=== PATIENT | male | born 1940 | race Caucasian/White ===

== ENCOUNTER 2016-12-05 13:12 | Observation (INO) | payer MEDICARE, BC ==
[2016-12-05 13:52] LABS: ABSOLUTE BASOPHILS # (AUTO) 0.1 10^3/uL (0.0-0.2); ABSOLUTE EOSINOPHILS # (AUTO) 0.4 10^3/uL (0.0-0.6); ABSOLUTE LYMPHOCYTES (AUTO) 1.7 10^3/uL (0.5-4.7); ABSOLUTE MONOCYTES (AUTO) 0.7 10^3/uL (0.1-1.4); ABSOLUTE NEUT (AUTO) 5.7 10^3/uL (1.7-8.2); BASOPHILS % (AUTO) 0.6 % (0-2); EOSINOPHILS % (AUTO) 4.2 % (0-6); HEMATOCRIT 34.6 % (37.9-51.0); HEMOGLOBIN 11.9 g/dL (13.5-17.0); HGB HCT DIFFERENCE 1.1; MEAN CORPUSCULAR HEMOGLOBIN 29.8 pg (27.0-33.4); MEAN CORPUSCULAR HGB CONC 34.4 g/dL (32.0-36.0); MEAN CORPUSCULAR VOLUME 87 fl (80-97); MONOCYTES % (AUTO) 8.6 % (3-13); RED CELL DISTRIBUTION WIDTH 13.3 % (11.5-14.0); SEGMENTED NEUTROPHILS % (AUTO) 66.6 % (42-78); WHITE BLOOD COUNT 8.5 10^3/uL (4.0-10.5)
[2016-12-05 14:15] LABS: ALANINE AMINOTRANSFERASE 29 U/L (21-72); ALBUMIN 3.8 g/dL (3.5-5.0); ALKALINE PHOSPHATASE 93 U/L (38-126); ANION GAP 16 (5-19); ASPARTATE AMINO TRANSFERASE 25 U/L (17-59); BILIRUBIN,TOTAL 0.5 mg/dL (0.2-1.3); BLOOD UREA NITROGEN 38 mg/dL (7-20); CALCIUM 9.7 mg/dL (8.4-10.2); CARBON DIOXIDE 26 mmol/L (22-30); CHLORIDE 101 mmol/L (98-107); CREATINE KINASE 78 U/L (55-170); CREATININE RESULT 1.64 mg/dL (0.52-1.25); GLUCOSE 128 mg/dL (75-110); POTASSIUM 4.5 mmol/L (3.6-5.0); SODIUM 142.8 mmol/L (137-145); TOTAL PROTEIN 6.5 g/dL (6.3-8.2)
--- NOTE | 2016-12-05 14:17 | ER Document Report ---
ED Cardiac <JAYDONZAFAR HudsonTHANH - Last Filed: 12/05/16 16:29> - General Mode of Arrival: Medic Information source: Patient TRAVEL OUTSIDE OF THE [place] IN LAST 30 DAYS: No - HPI Patient complains to provider of: Chest pain Associated symptoms: Other - See above <TONIE BRANCH - Last Filed: 12/09/16 14:15> - General Chief Complaint: Chest Pain Stated Complaint: CHEST PAIN Notes: This 76-year-old male patient comes emergency room for several problems. He is an insulin-dependent diabetic who states he frequently has low blood sugar due to accidentally taking too much insulin. He feels that is what happened this morning. He was at [employer] and noted that his blood sugar went down to 40 so he took oral glucose. This was about 12:30 PM. About the same time he noticed some left facial drooping, he noted his speech seems slurred and he was having trouble "forming the words ", and he also developed left-sided chest discomfort and tightness. He took 325 mg aspirin one sublingual nitroglycerin. Nitroglycerin seemed to ease the pain somewhat but not completely. Later the pain returned and he reports over the last hour since arriving here the pain would come and go. He states his left face still feels a little funny, but he is able to form his words properly at this time. He stated he had weakness in both upper extremities when this occurred. There was also an aching in both upper extremities. His history significant for coronary artery disease with 13 heart attacks, a three-vessel bypass in 2006. In 2010 he was sent from here to [facility] for catheterization following an admission for chest pain. He reports at that time no interventions were done. During the discussion about his symptoms, he also reports that he has trouble swallowing and then gags to demonstrate. He also states that it feels like his mouth and throat are quite dry. He does appear to be considerably anxious. He has no demonstrable motor weakness at this time on exam. His speech is quite clear although he does repeat himself and seems almost stutter some. He also reported that he had fallen 2 times in the past 2 weeks and was going to physical therapy. He is not a TPA candidate due to his lack of symptoms at this time and his reporting that his symptoms had improved quite a bit. (THANH INTERIANO) Patient is a 76 year old male, with a past medical history of diabetes and heart attacks, who presents to the emergency department complaining of chest pain onset at 1230 today. Patient reports that his day began when he took too much insulin and his blood sugar dropped which happens to him pretty frequently. After he raised his blood sugar back to normal, patient reports the chest pain began and described it as pain and tightness lasting a long time located around his sternum and accompanied with bilateral arm pain. Patient reports he took Nitro when the pain began which eased the pain but didn't relieve it entirely. Patient states the chest pain has been waxing and waning ever since onset. En route patient reports he experienced slurred speech and left sided facial weakness as well as difficulty swallowing. Patient complains that the facial weakness and difficulty swallowing are still present as well as some of the chest pain. Patient denies being on any blood thinners and takes an Asa daily. Receptionist: Dr. Vera (TONIE BRANCH) - Related Data Allergies/Adverse Reactions: No Known Allergies Allergy (Unverified 03/02/11 15:05) Home Medications: Current Home Medications Aspirin [Ecotrin] 81 mg PO DAILY 12/06/16 [History] Atorvastatin Calcium [Lipitor 40 mg Tablet] 40 mg PO QHS 12/06/16 [History] Calcium Carbonate/Vitamin D3 [Calcium 500-Vit D3 400 Tablet] 1 tab PO DAILY [History] Carvedilol [Coreg 12.5 mg Tablet] 6.25 mg PO DAILY 12/06/16 [History] Doxycycline Hyclate [Vibramycin 100 mg Tablet] 100 mg PO BID 12/06/16 [History] Insulin Aspart [Novolog Insulin (Aspart) 100 unit/mL] 0 units SQ ASDIR PRN 12/06 [History] Insulin Glargine,Hum.rec.anlog [Lantus] 0 units SQ ASDIR PRN 12/06/16 [History] Nifedipine [Nifedipine ER] 30 mg PO DAILY 12/06/16 [History] Sitagliptin Phosphate [Januvia 50 mg Tablet] 25 mg PO DAILY 12/06/16 [History] Tolterodine Tartrate [Detrol LA] 4 mg PO DAILY 12/06/16 [History] Past Medical History - General Information source: Patient - Social History Smoking Status: Never Smoker Family History: Reviewed & Not Pertinent - Past Medical History Cardiac Medical History: Reports: Hx Heart Attack - [place] x13, Hx Hypertension Pulmonary Medical History: Reports: Hx Pneumonia - hx of Endocrine Medical History: Reports: Hx Diabetes Mellitus Type 2 Malignancy Medical History: Reports Hx Prostate Cancer Musculoskeltal Medical History: Reports Hx Arthritis - hands Past Surgical History: Reports: Hx Cardiac Surgery - triple bypass - Immunizations Hx Diphtheria, Pertussis, Tetanus Vaccination: Yes - unsure of date <TONIE BRANCH - Last Filed: 12/09/16 14:15> Review of Systems - Review of Systems Constitutional: No symptoms reported EENT: See HPI, Difficulty swallowing Cardiovascular: See HPI, Chest pain Respiratory: No symptoms reported Gastrointestinal: No symptoms reported Genitourinary: No symptoms reported Male Genitourinary: No symptoms reported Musculoskeletal: See HPI, Other - arm pain Skin: No symptoms reported Hematologic/Lymphatic: No symptoms reported Neurological/Psychological: See HPI, Weakness - left sided facial, Speech impairment - slurred -: Yes All other systems reviewed and negative <TONIE BRANCH - Last Filed: 12/09/16 14:15> Physical Exam - Vital signs Interpretation: Normal - General General appearance: Appears well, Alert - HEENT Head: Normocephalic, Atraumatic - Respiratory Respiratory status: No respiratory distress Chest status: Nontender Breath sounds: Normal Chest palpation: Normal - Cardiovascular Rhythm: Regular Heart sounds: Normal auscultation Murmur: No - Abdominal Inspection: Normal Distension: No distension Bowel sounds: Normal Tenderness: Nontender Organomegaly: No organomegaly - Extremities General upper extremity: Normal inspection, Normal strength General lower extremity: Normal inspection, Normal strength - Neurological Neuro grossly intact: Yes Cognition: Normal Orientation: AAOx4 Antonia Coma Scale Eye Opening: Spontaneous [place] Coma Scale Verbal: Oriented Antonia Coma Scale Motor: Obeys Commands Antonia Coma Scale Total: 15 Speech: Normal Cranial nerves: Normal - May be some slight left sided muscle weakness but patient is still able to use them Motor strength normal: LUE, RUE, LLE, RLE Additional motor exam normals: 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 Chest x-ray is unremarkable. - EKG Interpretation by Ga EKG shows normal: Sinus rhythm, [place], Intervals, ST-T Waves. abnormal: QRS Complexes - Possible old septal NE Rate: Normal - 88 Rhythm: NSR When compared to previous EKG there are: No significant change - Consults Dr. Hauser Time consulted: 16:20 Consulted provider: will come to ER <THANH INTERIANO - Last Filed: 12/05/16 16:29> - Laboratory Result Diagrams: 12/06/16 05:42 12/06/16 05:42 <TONIE BRANCH - Last Filed: 12/09/16 14:15> - Vital Signs Vital signs: Temp Pulse Resp BP Pulse Ox 98.5 F 80 16 130/58 H 98 12/06/16 14:12 12/06/16 14:12 12/06/16 14:12 12/06/16 14:12 12/06/16 14:12 - Laboratory Laboratory results interpreted by al: 12/05/16 12/05/16 12/05/16 13:19 13:30 13:30 RBC 4.00 L Hgb 11.9 L Hct 34.6 L BUN 38 H Creatinine 1.64 H Est GFR ( Amer) 50 L Est GFR (Non-Af Amer) 41 L Glucose 128 H POC Glucose 138 H 12/05/16 16:16 RBC Hgb Hct BUN Creatinine Est GFR ( Amer) Est GFR (Non-Af Amer) Glucose POC Glucose 143 H Discharge - Discharge Admitting Provider: Hospitalist Unit Admitted: IMCU <THANH INTERIANO - Last Filed: 12/05/16 16:29> <TONIE BRANCH - Last Filed: 12/09/16 14:15> - Discharge Clinical Impression: Hypoglycemia due to insulin Chest pain Qualifiers: Chest pain type: unspecified Qualified Code(s): R07.9 - Chest pain, unspecified TIA (transient ischemic attack) Qualifiers: Transient cerebral ischemia type: unspecified Qualified Code(s): G45.9 - Transient cerebral ischemic attack, unspecified Condition: Good Disposition: HOME, SELF-CARE Scribe Attestation: 12/05/16 16:29 I personally performed the services described in the documentation, reviewed and edited the documentation which was dictated to the scribe in my presence, and it accurately records my words and actions. (THANH INTERIANO) Scribe Documentation - Scribe Written by Jane:: jane Whitney, 12/05/16, [id number] acting as scribe for :: Jaydon <TONIE BRANCH - Last Filed: 12/09/16 14:15>
[2016-12-05 14:33] LABS: CREATINE KINASE MB 1.33 ng/mL (<4.55)
[2016-12-05 14:34] LABS: TROPONIN I < 0.012 ng/mL
[2016-12-05 14:36] LABS: PROTHROMBIN TIME 12.6 SEC (11.4-15.4)
--- NOTE | 2016-12-05 16:05 | EKG REPORT ---
SEVERITY:- ABNORMAL ECG - SINUS RHYTHM CONSIDER ANTEROSEPTAL INFARCT : Confirmed by: Renata Juan MD 05-Dec-2016 16:03:50
[2016-12-05] MEDS ORDERED: ONDANSETRON 4 MG TAB.RAPDIS PO PRN (16:45)
[2016-12-05] MEDS ORDERED: ACETAMINOPHEN 325 MG TABLET PO PRN (16:45)
[2016-12-05] MEDS ORDERED: ONDANSETRON HCL INJ/PF 4 MG/2 ML SDV IV PRN (16:45)
[2016-12-05] MEDS ORDERED: DEXTROSE 40% GEL 15 GM TUBE PO PRN ×2 (16:54)
[2016-12-05] MEDS ORDERED: GLUCAGON,HUMAN RECOMB 1 MG INJ IM PRN (16:54)
[2016-12-05] MEDS ORDERED: DEXTROSE 50%-WATER 25 GM/50 ML DISP.SYRIN IV PRN ×2 (16:54)
[2016-12-05] MEDS ORDERED: BUTALB/ACETAMINOPHEN/CAFFEINE 1 TAB EACH PO PRN (16:57)
--- NOTE | 2016-12-05 17:08 | PDOC H&P ---
History of Present Illness Admission Date/PCP: XENIA STYLES MD Patient complains of: Expressive aphasia as well as chest pain with History of Present Illness: SRIDEVI GREENWOOD is a 76 year old male who was at congregational earlier today and began to have problems speaking. Patient was able to check his blood sugar and it was 61. The patient took some glucose tablets with improvement but continues to have problems speaking. The patient also developed some left-sided chest pain describes as sharp sticking pain and did not radiate. There was also a questionable facial droop but that has resolved by his report. The patient reports that he felt generalized weak but did not have any focal weakness. His blood sugars have been normal since the initial blood sugar 61. He reports that his chest pain is sharp and does not radiate. He denies any palpitations or tachycardia. 1 week ago he had a syncopal episode for which he has seen his farm products shipper Dr. Vera and has had a carotid Doppler done which was normal his report. He also scheduled to have an echocardiogram done on Wednesday. Patient reports that his blood sugars for the most part have been under good control. He denies have any fevers or chills. He denies any visual loss. He denies any weakness in his arms or legs and denies any sensory changes. Past Medical History Cardiac Medical History: Reports: Myocardial Infarction - [place] x13, Hypertension Denies: Coronary Artery Disease Pulmonary Medical History: Reports: Pneumonia - hx of Denies: Asthma, Bronchitis, Chronic Obstructive Pulmonary Disease (COPD) EENT Medical History: Reports: Cataracts Neurological Medical History: Denies: Seizures Endocrine Medical History: Reports: Diabetes Mellitus Type 2 Malignancy Medical History: Reports: Other - Prostate cancer with history of radiation seed implantation GI Medical History: Reports: None Musculoskeltal Medical History: Reports: Arthritis - hands Skin Medical History: Reports: None Hematology: Denies: Anemia Past Surgical History Past Surgical History: Reports: Coronary Artery Bypass Graft Denies: Pacemaker Social History Information Source: Patient Lives with: Family Smoking Status: Never Smoker Frequency of Alcohol Use: None Hx Recreational Drug Use: No Drugs: None Hx Prescription Drug Abuse: No - Advance Directive Resuscitation Status: Full Code Surrogate healthcare decision maker:: His son is his decision maker Family History Family History: Father at 61 from coronary artery disease and GI problems. Mother at age 89 from coronary artery disease. Parental Family History Reviewed: Yes Children Family History Reviewed: No Sibling(s) Family History Reviewed.: No Medication/Allergy Allergies/Adverse Reactions: No Known Allergies Allergy (Unverified 03/02/11 15:05) Review of Systems Constitutional: PRESENT: weakness - Unless weakness. ABSENT: chills, fever(s), headache(s), weight gain, weight loss Eyes: ABSENT: visual disturbances Ears: ABSENT: hearing changes Cardiovascular: PRESENT: as per HPI Respiratory: ABSENT: cough, dyspnea, hemoptysis, sputum Gastrointestinal: ABSENT: abdominal pain, constipation, diarrhea, hematemesis, hematochezia, nausea, vomiting Musculoskeletal: ABSENT: joint swelling Integumentary: ABSENT: rash, wounds Neurological: PRESENT: as per HPI Psychiatric: ABSENT: anxiety, depression Endocrine: ABSENT: cold intolerance, heat intolerance, polydipsia, polyuria Physical Exam Vital Signs: Temp Pulse Resp BP Pulse Ox 97.9 F 85 16 130/58 H 98 12/05/16 13:40 12/05/16 13:40 12/05/16 13:41 12/05/16 13:40 12/05/16 13:41 Intake & Output 12/04/16 12/05/16 12/06/16 06:59 06:59 06:59 Weight 81.193 kg General appearance: PRESENT: no acute distress Head exam: PRESENT: atraumatic, normocephalic Eye exam: PRESENT: conjunctiva pink, EOMI, PERRLA. ABSENT: scleral icterus Ear exam: PRESENT: normal external ear exam Mouth exam: PRESENT: moist, tongue midline Neck exam: ABSENT: carotid bruit, JVD, lymphadenopathy, thyromegaly Respiratory exam: PRESENT: clear to auscultation iván. ABSENT: rales, rhonchi, wheezes Cardiovascular exam: PRESENT: RRR. ABSENT: diastolic murmur, rubs, systolic murmur Pulses: PRESENT: normal dorsalis pedis pul Vascular exam: PRESENT: normal capillary refill GI/Abdominal exam: PRESENT: normal bowel sounds, soft. ABSENT: distended, guarding, mass, organolmegaly, rebound, tenderness Rectal exam: PRESENT: deferred Extremities exam: ABSENT: calf tenderness, clubbing, pedal edema Neurological exam: PRESENT: alert, awake, oriented to person, oriented to place , oriented to time, oriented to situation, CN II-XII grossly intact. ABSENT: motor sensory deficit Psychiatric exam: PRESENT: anxious Skin exam: PRESENT: dry, intact, warm. ABSENT: cyanosis, rash Results Laboratory Results: 12/05/16 13:30 12/05/16 13:30 12/05/16 12/05/16 13:30 13:30 WBC 8.5 RBC 4.00 L Hgb 11.9 L Hct 34.6 L MCV 87 MCH 29.8 MCHC 34.4 RDW 13.3 Plt Count 167 Seg Neutrophils % 66.6 Lymphocytes % 20.0 Monocytes % 8.6 Eosinophils % 4.2 Basophils % 0.6 Absolute Neutrophils 5.7 Absolute Lymphocytes 1.7 Absolute Monocytes 0.7 Absolute Eosinophils 0.4 Absolute Basophils 0.1 Sodium 142.8 Potassium 4.5 Chloride 101 Carbon Dioxide 26 Anion Gap 16 BUN 38 H Creatinine 1.64 H Est GFR ( Amer) 50 L Est GFR (Non-Af Amer) 41 L Glucose 128 H Calcium 9.7 Total Bilirubin 0.5 AST 25 ALT 29 Alkaline Phosphatase 93 Total Protein 6.5 Albumin 3.8 12/05/16 12/05/16 13:30 13:30 Creatine Kinase 78 CK-MB (CK-2) 1.33 Troponin I < 0.012 Impressions: Chest X-Ray 12/05/16 13:40 IMPRESSION: NO ACUTE RADIOGRAPHIC FINDING IN THE CHEST. Head CT 12/05/16 14:19 IMPRESSION: No acute abnormality in the brain. Assessment & Plan - Diagnosis (1) TIA (transient ischemic attack) Qualifiers: Transient cerebral ischemia type: unspecified Qualified Code(s): G45.9 - Transient cerebral ischemic attack, unspecified Is this a current diagnosis for this admission?: YesPlan: The patient had dysarthria along with some expressive aphasia as well as a questionable facial droop. However this was associated with a blood glucose sugar 61. It's unclear as to whether this is all related to hyperglycemia or whether he actually had a TIA. We will admit and do serial neurological exams. We'll also check an MRI. He had carotid Dopplers done 1 week ago his farm products shipper which is normal his report. He is scheduled to get an echocardiogram done by his farm products shipper on Wednesday. He request that this not be done here and that we allow his farm products shipper to the echocardiogram. We will treat with aspirin. He is already on a statin. (2) Chest pain Qualifiers: Chest pain type: unspecified Qualified Code(s): R07.9 - Chest pain, unspecified (3) Diabetes mellitus Is this a current diagnosis for this admission?: YesPlan: We'll continue with his usual Lantus dose of 23 units twice a day and cover also with sliding scale insulin. Will hold his oral Januvia for now. (4) Coronary artery disease Is this a current diagnosis for this admission?: YesPlan: Patient had an episode of chest pain. We will check serial cardiaccertain that he is not had an acute cardiac event. Would defer a stress test to his farm products shipper whom he has appointment with in 2 days. (5) Prostate cancer Is this a current diagnosis for this admission?: YesPlan: Asymptomatic (6) Hyperlipidemia Is this a current diagnosis for this admission?: YesPlan: Continue with Lipitor. - Time Time Spent: 50 to 70 Minutes - Plan Summary Plan Summary: Patient is to be admitted as an observation patient
[2016-12-05 17:58] LABS: CREATINE KINASE MB 1.18 ng/mL (<4.55)
[2016-12-05 17:59] LABS: TROPONIN I < 0.012 ng/mL
[2016-12-05] MEDS ORDERED: ATORVASTATIN CALCIUM 40 MG TABLET PO SCH (22:00)
[2016-12-05] MEDS: FAMOTIDINE 20 MG TABLET PO SCH (22:24)
[2016-12-05] MEDS ORDERED: INSULIN GLARGINE,HUM.REC.ANLOG 300 UNIT/3 ML INSULN.PEN SUBCUT ONE (22:37)
[2016-12-05 23:48] LABS: CREATINE KINASE MB 0.97 ng/mL (<4.55)
[2016-12-05 23:49] LABS: TROPONIN I < 0.012 ng/mL
[2016-12-06] MEDS: INSULIN GLARGINE,HUM.REC.ANLOG 300 UNIT/3 ML INSULN.PEN SUBCUT SCH ×2 (00:26→09:19)
[2016-12-06 06:03] LABS: HEMATOCRIT 32.5 % (37.9-51.0); HEMOGLOBIN 11.1 g/dL (13.5-17.0); HGB HCT DIFFERENCE 0.8; MEAN CORPUSCULAR HEMOGLOBIN 29.9 pg (27.0-33.4); MEAN CORPUSCULAR HGB CONC 34.3 g/dL (32.0-36.0); MEAN CORPUSCULAR VOLUME 87 fl (80-97); RED BLOOD COUNT 3.73 10^6/uL (4.35-5.55); RED CELL DISTRIBUTION WIDTH 13.1 % (11.5-14.0); WHITE BLOOD COUNT 6.6 10^3/uL (4.0-10.5)
[2016-12-06 06:22] LABS: ANION GAP 12 (5-19); BLOOD UREA NITROGEN 35 mg/dL (7-20); CALCIUM 8.8 mg/dL (8.4-10.2); CARBON DIOXIDE 22 mmol/L (22-30); CHLORIDE 105 mmol/L (98-107); CREATINE KINASE 49 U/L (55-170); CREATININE RESULT 1.21 mg/dL (0.52-1.25); GLUCOSE 180 mg/dL (75-110); POTASSIUM 4.1 mmol/L (3.6-5.0); SODIUM 138.6 mmol/L (137-145)
[2016-12-06 06:33] LABS: CREATINE KINASE MB 0.87 ng/mL (<4.55)
[2016-12-06 06:38] LABS: TROPONIN I < 0.012 ng/mL
[2016-12-06] MEDS: INSULIN LISPRO 100 UNIT/ML 3 ML VIAL SUBCUT PRN ×2 (08:15→12:25)
[2016-12-06] MEDS: FAMOTIDINE 20 MG TABLET PO SCH (09:19)
[2016-12-06] MEDS ORDERED: ASPIRIN 325 MG TABLET, ENT COATED PO SCH (10:00)
--- NOTE | 2016-12-06 11:38 | PDOC DISCHARGE SUMMARY ---
General - Admit/Disc Date/PCP Admission Date/Primary Care Provider: 12/05/16 16:45 XENIA STYLES MD Discharge Date: 12/06/16 - Discharge Diagnosis (1) TIA (transient ischemic attack) Is this a current diagnosis for this admission?: YesSummary: Is not clear whether this was truly a TIA or was all related to hypoglycemia. His MRI was unremarkable for any acute event. The patient had carotid Dopplers done last week at his registered occupational therapist. He is scheduled to get an echocardiogram at his registered occupational therapist's office tomorrow. He will continue with aspirin. (2) Chest pain Is this a current diagnosis for this admission?: YesSummary: The patient had negative cardiac enzymes. He will follow-up with his registered occupational therapist tomorrow. (3) Diabetes mellitus Is this a current diagnosis for this admission?: Yes (4) Coronary artery disease Is this a current diagnosis for this admission?: Yes (5) Prostate cancer Is this a current diagnosis for this admission?: Yes (6) Hyperlipidemia Is this a current diagnosis for this admission?: Yes - Additional Information Resuscitation Status: Full Code History of Present Illness History of Present Illness: SRIDEVI GREENWOOD is a 76 year old male who was at [facility] earlier today and began to have problems speaking. Patient was able to check his blood sugar and it was 61. The patient took some glucose tablets with improvement but continues to have problems speaking. The patient also developed some left-sided chest pain describes as sharp sticking pain and did not radiate. There was also a questionable facial droop but that has resolved by his report. The patient reports that he felt generalized weak but did not have any focal weakness. His blood sugars have been normal since the initial blood sugar 61. He reports that his chest pain is sharp and does not radiate. He denies any palpitations or tachycardia. 1 week ago he had a syncopal episode for which he has seen his registered occupational therapist Dr. Vera and has had a carotid Doppler done which was normal his report. He also scheduled to have an echocardiogram done on Wednesday. Patient reports that his blood sugars for the most part have been under good control. He denies have any fevers or chills. He denies any visual loss. He denies any weakness in his arms or legs and denies any sensory changes. Hospital Course Hospital Course: 76 year old gentleman with diabetes and coronary artery disease who presented with complaints of dysarthria. His sugar was 61 when he first started having symptoms. He was admitted as a TIA and had an unremarkable workup. He is to continue with aspirin. His echocardiogram was not done as he will get it done in his registered occupational therapist tomorrow at his scheduled appointment. He had carotid Dopplers done 1 week ago that were normal by his report. He also presented with chest pain but had negative cardiac enzyme has been chest pain-free. He will see his registered occupational therapist tomorrow. Physical Exam Vital Signs: Temp Pulse Resp BP Pulse Ox 98.1 F 78 16 131/63 H 99 12/06/16 07:50 12/06/16 08:27 12/06/16 08:00 12/06/16 08:00 12/06/16 08:00 Intake & Output 12/05/16 12/06/16 12/07/16 06:59 06:59 06:59 Output Total 400 Balance -400 Weight 81.18 kg General appearance: PRESENT: no acute distress Eye exam: PRESENT: conjunctiva pink. ABSENT: scleral icterus Mouth exam: PRESENT: moist, tongue midline Neck exam: ABSENT: JVD Respiratory exam: PRESENT: clear to auscultation iván. ABSENT: rales, rhonchi, wheezes Cardiovascular exam: PRESENT: RRR. ABSENT: diastolic murmur, rubs, systolic murmur GI/Abdominal exam: PRESENT: normal bowel sounds, soft. ABSENT: distended, guarding, mass, organolmegaly, rebound, tenderness Extremities exam: ABSENT: calf tenderness, clubbing, pedal edema Neurological exam: PRESENT: alert, awake, oriented to person, oriented to place , oriented to time, oriented to situation, CN II-XII grossly intact. ABSENT: motor sensory deficit Psychiatric exam: PRESENT: appropriate affect Skin exam: PRESENT: dry, intact, warm. ABSENT: cyanosis, rash Results Laboratory Results: 12/06/16 05:42 12/06/16 05:42 12/06/16 12/06/16 05:42 05:42 WBC 6.6 RBC 3.73 L Hgb 11.1 L Hct 32.5 L MCV 87 MCH 29.9 MCHC 34.3 RDW 13.1 Plt Count 151 Sodium 138.6 Potassium 4.1 Chloride 105 Carbon Dioxide 22 Anion Gap 12 BUN 35 H Creatinine 1.21 Est GFR ( Amer) > 60 Est GFR (Non-Af Amer) 58 L Glucose 180 H Calcium 8.8 12/05/16 12/05/16 12/05/16 17:15 17:15 23:00 Creatine Kinase 71 58 CK-MB (CK-2) 1.18 Troponin I < 0.012 12/05/16 12/06/16 12/06/16 23:00 05:42 05:42 Creatine Kinase 49 L CK-MB (CK-2) 0.97 0.87 Troponin I < 0.012 < 0.012 Impressions: Head MRI 12/05/16 00:00 IMPRESSION: MINIMAL MICROVASCULAR ISCHEMIC CHANGE. Mild cortical atrophy. OTHERWISE NORMAL STUDY. Chest X-Ray 12/05/16 13:40 IMPRESSION: NO ACUTE RADIOGRAPHIC FINDING IN THE CHEST. Head CT 12/05/16 14:19 IMPRESSION: No acute abnormality in the brain. Qualifiers PATEINT BEING DISCHARGED WITH ANY OF THE FOLLOWING DIAGNOSIS?: No Plan Discharge Plan: Patient discharged home in stable condition. He will follow-up with his registered occupational therapist tomorrow for evaluation of his chest pain as well as echocardiogram. Time Spent: Less than 30 Minutes
[2016-12-06 14:15] VITALS: BP 130/58
== END 2016-12-06 14:35 | disposition home or self-care (01) ==
LOC: ER 13:12 → EH 16:45 → 3W 12-06 02:51
PROVIDERS: ADMIT Internal Medicine; ATTEND Internal Medicine
DX: G45.9 Transient cerebral ischemic attack, unspecified (principal); R07.9 Chest pain, unspecified; E11.9 Type 2 diabetes mellitus without complications; I25.10 Atherosclerotic heart disease of native coronary artery without angina pectoris; C61 Malignant neoplasm of prostate; E78.5 Hyperlipidemia, unspecified; I25.2 Old myocardial infarction; I10 Essential (primary) hypertension; Z95.1 Presence of aortocoronary bypass graft; Z79.4 Long term (current) use of insulin
CPT/HCPCS: 93005; 99285; 36415 ×2; 82553 ×2; 82962 ×2; 82550 ×2; 85025; 85027; 85610; 80048; 80053; 84484 ×2; 70551; 71010; 70450; 93010; 97162; G0378 ×3; A9270 ×5; J3490 ×2; J1815

== ENCOUNTER → 2017-03-04 | Outpatient (CLI) | payer MEDICARE, BC ==
--- NOTE | 2017-03-04 09:25 | WOMENS IMAGING REPORT ---
EXAM DESCRIPTION: BONE DENSITY HIP/SPINE COMPLETED DATE/TIME: 03/04/2017 8:59 am REASON FOR STUDY: BONE DENSITY; M81.0 M81.0 AGE-RELATED OSTEOPOROSIS W/O CURRENT PATHOLOGICAL FRAC COMPARISON: Bone scan 04/09/2014, 10/17/2012 Prior bone density assessment 11/03/2012, 12/03/2014 TECHNIQUE: Dual-Energy X-ray Absorptiometry (DEXA) of the AP Spine and Hip. LIMITATIONS: None. FINDINGS: LUMBAR SPINE: The bone mineral density (BMD) measured from L1-L4 in the AP projection correlates with a T-score of +2.2, which is normal as defined by the World Health Organization. Please note that this does includ e vertebral body endplate sclerosis and posterior element bony spurring. This is not statistically s ignificantly different from prior studies. HIP: The bone mineral density (BMD) measured in the left total hip correlates with a T-score of +0.6, whic h is normal as defined by the World Health Organization. This is not statistically significantly dif ferent from 2014 and represents a 2.5% decline in bone density compared to 2012 IMPRESSION: 1. LUMBAR SPINE: Normal 2. HIP: Normal COMMENT: The World Health Organization defines low BMD as follows: T-score: Normal: Greater than -1.0 Osteopenia: Between -1.0 and -2.5 Osteoporosis: Less than -2.5 without fractures Established osteoporosis: Less than -2.5 with fractures In general, you may wish to consider: Diagnosis Treatment Follow-up DEXA Normal BMD Prevention 2-3 years Osteopenia Prevention/Therapy 1-2 years Osteoporosis Therapy Yearly TECHNICAL DOCUMENTATION: JOB ID: [id number] All Rights Reserved
== END ==
LOC: WI 08:06
PROVIDERS: ATTEND Urology
DX: M81.0 Age-related osteoporosis without current pathological fracture (principal)
CPT/HCPCS: 77080

== ENCOUNTER 2017-03-13 17:10 | Emergency (ER) | payer MEDICARE, BC ==
[2017-03-13] MEDS ORDERED: NORMAL SALINE 500 ML IV ONE (17:24)
--- NOTE | 2017-03-13 17:25 | ER Document Report ---
ED Medical Screen (RME) - General Chief Complaint: Abdominal Pain Stated Complaint: SIDE PAIN Time Seen by Provider: 03/13/17 17:24 TRAVEL OUTSIDE OF THE [place] IN LAST 30 DAYS: No - HPI Notes: 03/13/17 17:25 Acute onset left lower quadrant pain with diarrhea - Related Data Allergies/Adverse Reactions: No Known Allergies Allergy (Unverified 03/02/11 15:05) Past Medical History - Past Medical History Cardiac Medical History: Reports: Hx Heart Attack - [place] x13, Hx Hypertension Denies: Hx Coronary Artery Disease Pulmonary Medical History: Reports: Hx Pneumonia - hx of Denies: Hx Asthma, Hx Bronchitis, Hx COPD Neurological Medical History: Denies: Hx Cerebrovascular Accident, Hx Seizures Endocrine Medical History: Reports: Hx Diabetes Mellitus Type 2 Renal/ Medical History: Denies: Hx Peritoneal Dialysis Malignancy Medical History: Reports Hx Prostate Cancer Musculoskeltal Medical History: Reports Hx Arthritis - hands Past Surgical History: Reports: Hx Cardiac Surgery - triple bypass, Hx Coronary Artery Bypass Graft. Denies: Hx Pacemaker - Immunizations Hx Diphtheria, Pertussis, Tetanus Vaccination: Yes - unsure of date Review of Systems - Review of Systems Constitutional: No symptoms reported EENT: No symptoms reported Cardiovascular: No symptoms reported Respiratory: No symptoms reported Gastrointestinal: Abdominal pain Genitourinary: No symptoms reported Male Genitourinary: No symptoms reported Musculoskeletal: No symptoms reported Skin: No symptoms reported Hematologic/Lymphatic: No symptoms reported Neurological/Psychological: No symptoms reported Physical Exam - Vital signs Vitals: Temp Pulse Resp BP Pulse Ox 99.7 F 109 H 18 129/71 H 95 03/13/17 17:14 03/13/17 17:14 03/13/17 17:14 03/13/17 17:14 03/13/17 17:14 Interpretation: Normal - General General appearance: Appears well, Alert - HEENT Head: Normocephalic, Atraumatic Eyes: Normal Pupils: PERRL - Respiratory Respiratory status: No respiratory distress Chest status: Nontender Breath sounds: Normal Chest palpation: Normal - Cardiovascular Rhythm: Regular Heart sounds: Normal auscultation Murmur: No - Abdominal Inspection: Normal Distension: No distension Bowel sounds: Normal Tenderness: Tender - Left lower quadrant Organomegaly: No organomegaly - Back Back: Normal, Nontender - Extremities General upper extremity: Normal inspection, Nontender, Normal color, Normal ROM , Normal temperature General lower extremity: Normal inspection, Nontender, Normal color, Normal ROM , Normal temperature, Normal weight bearing. No: Heladio's sign - Neurological Neuro grossly intact: Yes Cognition: Normal Orientation: AAOx4 Antonia Coma Scale Eye Opening: Spontaneous [place] Coma Scale Verbal: Oriented [place] Coma Scale Motor: Obeys Commands Antonia Coma Scale Total: 15 Speech: Normal Motor strength normal: LUE, RUE, LLE, RLE Sensory: Normal - Psychological Associated symptoms: Normal affect, Normal mood - Skin Skin Temperature: Warm Skin Moisture: Dry Skin Color: Normal Course - Re-evaluation Re-evalutation: 03/13/17 17:25 - Vital Signs Vital signs: Temp Pulse Resp BP Pulse Ox 99.7 F 109 H 18 129/71 H 95 03/13/17 17:14 03/13/17 17:14 03/13/17 17:14 03/13/17 17:14 03/13/17 17:14
[2017-03-13 18:42] LABS: ABSOLUTE EOSINOPHILS # (AUTO) 0.1 10^3/uL (0.0-0.6); ABSOLUTE LYMPHOCYTES (AUTO) 0.6 10^3/uL (0.5-4.7); ABSOLUTE MONOCYTES (AUTO) 0.6 10^3/uL (0.1-1.4); BASOPHILS % (AUTO) 0.3 % (0-2); EOSINOPHILS % (AUTO) 1.8 % (0-6); HEMATOCRIT 39.2 % (37.9-51.0); HEMOGLOBIN 12.9 g/dL (13.5-17.0); HGB HCT DIFFERENCE -0.5; LYMPHOCYTES % (AUTO) 7.6 % (13-45); MEAN CORPUSCULAR HEMOGLOBIN 29.2 pg (27.0-33.4); MEAN CORPUSCULAR VOLUME 89 fl (80-97); MONOCYTES % (AUTO) 7.9 % (3-13); RED BLOOD COUNT 4.43 10^6/uL (4.35-5.55); RED CELL DISTRIBUTION WIDTH 13.6 % (11.5-14.0); SEGMENTED NEUTROPHILS % (AUTO) 82.4 % (42-78); WHITE BLOOD COUNT 7.3 10^3/uL (4.0-10.5)
--- NOTE | 2017-03-13 18:53 | ER Document Report ---
ED General - General Chief Complaint: Abdominal Pain Stated Complaint: SIDE PAIN Time Seen by Provider: 03/13/17 17:24 Mode of Arrival: Ambulatory Information source: Patient Notes: 76 yr old male presents with complaints of LLQ pain with diarrhea. pt denies any fevers or chills, denies any nausea or vomiting. pt denies any previous similar episodes TRAVEL OUTSIDE OF THE [place] IN LAST 30 DAYS: No - HPI Onset: This afternoon Onset/Duration: Sudden Quality of pain: Sharp Severity: Mild Pain Level: 1 Associated symptoms: Diarrhea Exacerbated by: Denies Relieved by: Denies Similar symptoms previously: No Recently seen / treated by doctor: No - Related Data Allergies/Adverse Reactions: No Known Allergies Allergy (Unverified 03/02/11 15:05) Past Medical History - Social History Smoking Status: Never Smoker Cigarette use (# per day): No Chew tobacco use (# tins/day): No Smoking Education Provided: No Frequency of alcohol use: None Drug Abuse: None Family History: Reviewed & Not Pertinent Patient has suicidal ideation: No Patient has homicidal ideation: No - Past Medical History Cardiac Medical History: Reports: Hx Heart Attack - [place] x13, Hx Hypertension Denies: Hx Coronary Artery Disease Pulmonary Medical History: Reports: Hx Pneumonia - hx of Denies: Hx Asthma, Hx Bronchitis, Hx COPD Neurological Medical History: Denies: Hx Cerebrovascular Accident, Hx Seizures Endocrine Medical History: Reports: Hx Diabetes Mellitus Type 2 Renal/ Medical History: Denies: Hx Peritoneal Dialysis Malignancy Medical History: Reports Hx Prostate Cancer Musculoskeltal Medical History: Reports Hx Arthritis - hands Past Surgical History: Reports: Hx Cardiac Surgery - triple bypass, Hx Coronary Artery Bypass Graft. Denies: Hx Pacemaker - Immunizations Hx Diphtheria, Pertussis, Tetanus Vaccination: Yes - unsure of date Review of Systems - Review of Systems Notes: REVIEW OF SYSTEMS: CONSTITUTIONAL : Denies fever, chills, or sweats. Denies recent illness. EENT: Denies eye, ear, throat, or mouth pain or symptoms. Denies nasal or sinus congestion or discharge. Denies throat, tongue, or mouth swelling or difficulty swallowing. CARDIOVASCULAR: Denies chest pain. Denies palpitations or racing or irregular heart beat. Denies ankle edema. RESPIRATORY: Denies cough, cold, or chest congestion. Denies shortness of breath, difficulty breathing, or wheezing. GASTROINTESTINAL: Admits to abdominal pain GENITOURINARY: Denies difficulty urinating, painful urination, burning, frequency, blood in urine, or discharge. MUSCULOSKELETAL: Denies back or neck pain or stiffness. Denies joint pain or swelling. SKIN: Denies rash, lesions or sores. HEMATOLOGIC : Denies easy bruising or bleeding. LYMPHATIC: Denies swollen, enlarged glands. NEUROLOGICAL: Denies confusion or altered mental status. Denies passing out or loss of consciousness. Denies dizziness or lightheadedness. Denies headache. Denies weakness or paralysis or loss of use of either side. Denies problems with gait or speech. Denies sensory loss, numbness, or tingling. Denies seizures. PSYCHIATRIC: Denies anxiety or stress. Denies depression, suicidal ideation, or homicidal ideation. ALL OTHER SYSTEMS REVIEWED AND NEGATIVE. Dictation was performed using [employer] voice recognition software PHYSICAL EXAMINATION: GENERAL: Well-appearing, well-nourished and in no acute distress. HEAD: Atraumatic, normocephalic. EYES: Pupils equal round and reactive to light, extraocular movements intact, sclera anicteric, conjunctiva are normal. ENT: Nares patent, oropharynx clear without exudates. Moist mucous membranes. NECK: Normal range of motion, supple without lymphadenopathy LUNGS: Breath sounds clear to auscultation bilaterally and equal. No wheezes rales or rhonchi. HEART: Regular rate and rhythm without murmurs ABDOMEN: Soft, point tenderness left lower quadrant generalized tenderness all throughout no rebound or guarding Musculoskeletal: Normal range of motion, no pitting or edema. No cyanosis. NEUROLOGICAL: Cranial nerves grossly intact. Normal speech, normal gait. Normal sensory, motor exams PSYCH: Normal mood, normal affect. SKIN: Warm, Dry, normal turgor, no rashes or lesions noted. Physical Exam - Vital signs Vitals: Temp Pulse Resp BP Pulse Ox 99.7 F 109 H 18 129/71 H 95 03/13/17 17:14 03/13/17 17:14 03/13/17 17:14 03/13/17 17:14 03/13/17 17:14 Course - Re-evaluation Re-evalutation: 03/13/17 18:53 Patient is tender in the left lower quadrant I have very low suspicion for an appendicitis however given age and tenderness of pain a CT has been ordered to rule out any other life-threatening issues. Given that the patient is having diarrhea I believe this may be secondary to infectious process leading to the diarrhea 03/13/17 20:01 CT noted no acute abnormality lab work appears well. Patient will be discharged home with nausea control appears pain secondary to the diarrhea After performing a Medical Screening Examination, I estimate there is LOW risk for ACUTE APPENDICITIS, BOWEL OBSTRUCTION, ACUTE CHOLECYSTITIS, PERFORATED DIVERTICULITIS, INCARCERATED HERNIA, PANCREATITIS, or PERFORATED ULCER, thus I consider the discharge disposition reasonable. Also, there is no evidence or peritonitis, sepsis, or toxicity. I have reevaluated this patient multiple times and no significant life threatening changes are noted. The patient and I have discussed the diagnosis and risks, and we agree with discharging home with close follow-up with the understanding that symptoms and presentations can change. We also discussed returning to the Emergency Department immediately if new or worsening symptoms occur. We have discussed the symptoms which are most concerning (e.g., bloody stool, fever, changing or worsening pain, intractable vomiting - standard verbal up date) that necessitate immediate return. - Vital Signs Vital signs: Temp Pulse Resp BP Pulse Ox 99.7 F 109 H 18 129/71 H 95 03/13/17 17:14 03/13/17 17:14 03/13/17 17:14 03/13/17 17:14 03/13/17 17:14 - Laboratory Result Diagrams: 03/13/17 18:15 03/13/17 18:15 Laboratory results interpreted by me: 03/13/17 03/13/17 03/13/17 18:15 18:15 18:54 Hgb 12.9 L Plt Count 112 L Seg Neutrophils % 82.4 H Lymphocytes % 7.6 L BUN 30 H Glucose 197 H Urine Protein 30 H Urine Glucose (UA) 50 H Urine Ketones TRACE H Urine Ascorbic Acid 40 H - Diagnostic Test Radiology reviewed: Image reviewed, Reports reviewed Discharge - Discharge Clinical Impression: Nausea vomiting and diarrhea Abdominal pain Qualifiers: Abdominal location: left lower quadrant Qualified Code(s): R10.32 - Left lower quadrant pain Diabetes mellitus Qualifiers: Diabetes mellitus type: type 1 Diabetes mellitus complication status: with unspecified complications Qualified Code(s): E10.8 - Type 1 diabetes mellitus with unspecified complications Condition: Stable Disposition: HOME, SELF-CARE Instructions: Abdominal Pain ([facility]) Prescriptions: Dicyclomine HCl [Bentyl 20 mg Tablet] 20 mg PO QID #40 tablet Promethazine HCl [Phenergan 25 mg Tablet] 25 - 50 mg PO ASDIR PRN #20 tablet PRN Reason: Referrals: XENIA STYLES MD [Primary Care Provider] - Follow up tomorrow
[2017-03-13] MEDS ORDERED: MORPHINE SULFATE 10 MG/ML INJ IV ONE (18:54)
[2017-03-13 19:05] LABS: ALANINE AMINOTRANSFERASE 41 U/L (21-72); ALBUMIN 3.9 g/dL (3.5-5.0); ALKALINE PHOSPHATASE 113 U/L (38-126); ANION GAP 12 (5-19); ASPARTATE AMINO TRANSFERASE 30 U/L (17-59); BILIRUBIN,DIRECT 0.4 mg/dL (0.0-0.4); BILIRUBIN,TOTAL 0.6 mg/dL (0.2-1.3); BLOOD UREA NITROGEN 30 mg/dL (7-20); CARBON DIOXIDE 27 mmol/L (22-30); CHLORIDE 102 mmol/L (98-107); CREATININE RESULT 1.13 mg/dL (0.52-1.25); GLUCOSE 197 mg/dL (75-110); LIPASE 56.2 U/L (23-300); POTASSIUM 4.3 mmol/L (3.6-5.0); SODIUM 140.5 mmol/L (137-145); TOTAL PROTEIN 7.1 g/dL (6.3-8.2)
[2017-03-13 19:08] LABS: APPEARANCE,URINE CLEAR; BILIRUBIN,URINE NEGATIVE (NEGATIVE); GLUCOSE, URINE 50 mg/dL (NEGATIVE); KETONES,URINE TRACE mg/dL (NEGATIVE); LEUKOCYTE ESTERASE,URINE NEGATIVE (NEGATIVE); NITRITE,URINE NEGATIVE (NEGATIVE); PROTEIN,URINE 30 mg/dL (NEGATIVE); URINE SPECIFIC GRAVITY 1.026; UROBILINOGEN,URINE NEGATIVE mg/dL (<2.0)
[2017-03-13 19:14] LABS: BACTERIA,URINE 1+ /HPF; HYALINE CASTS, URINE 0-1 /LPF
--- NOTE | 2017-03-13 19:45 | RADIOLOGY REPORT (SQ) ---
EXAM DESCRIPTION: CT ABD/PELVIS WITH IV ONLY COMPLETED DATE/TIME: 03/13/2017 7:28 pm REASON FOR STUDY: LLQ pain COMPARISON: None. TECHNIQUE: CT scan of the abdomen and pelvis performed using helical scanning technique with dynamic intravenous contrast injection. No oral contrast. Images reviewed with lung, soft tissue, and bone windows. Reconstructed coronal and sagittal MPR images reviewed. Delayed images for evaluation of the urinary system also acquired. All images stored on PACS. All CT scanners at this facility use dose modulation, iterative reconstruction, and/or weight based d osing when appropriate to reduce radiation dose to as low as reasonably achievable (ALARA). [facility]: Dose Right [facility]: CareDose [facility]: Dose Right [facility]: Teradose 4D [facility]: BorderJump CONTRAST TYPE AND DOSE: contrast/concentration: Isovue 370.00 mg/ml; Total Contrast Delivered: 96.0 ml; Total Saline Delivered: 71.0 ml RENAL FUNCTION: BUN 30; creatinine 1.13 RADIATION DOSE: Up-to-date CT equipment and radiation dose reduction techniques were employed. CTDIv ol: 15.9 - 19.1 mGy. DLP: 1915 mGy-cm.. LIMITATIONS: None. FINDINGS: LOWER CHEST: Bibasilar scarring and bronchiectasis. LIVER: Normal size. No masses or dilated ducts. Hepatic steatosis. SPLEEN: Normal size. No focal lesions. PANCREAS: No masses. No significant calcifications. No adjacent inflammation or peripancreatic fluid collections. Pancreatic duct not dilated. GALLBLADDER: No identified stones by CT criteria. No inflammatory changes to suggest cholecystitis. ADRENAL GLANDS: No significant masses or asymmetry. RIGHT KIDNEY AND URETER: No solid masses. Multiple small renal cysts. No significant calcification s. No hydronephrosis or hydroureter. LEFT KIDNEY AND URETER: No solid masses. Multiple small renal cysts. No significant calcifications . No hydronephrosis or hydroureter. AORTA AND VESSELS: Calcified and noncalcified atherosclerotic plaque. No aneurysm. No dissection. Re nal arteries, SMA, celiac without stenosis. RETROPERITONEUM: No retroperitoneal adenopathy, hemorrhage or masses. BOWEL AND PERITONEAL CAVITY: Scattered colonic diverticula. No masses or inflammatory changes. No fr ee fluid or peritoneal masses. APPENDIX: Normal. PELVIS: No mass or free fluid. Normal bladder. Indwelling medical devices within the prostate. ABDOMINAL WALL: No masses. No hernias. BONES: Degenerative changes of the hips and spine. OTHER: No other significant finding. IMPRESSION: No evidence of acute intra-abdominal infectious/ inflammatory process. Chronic and inci dental findings as detailed above. TECHNICAL DOCUMENTATION: JOB ID: [id number] Quality ID # [id number]: Final reports with documentation of one or more dose reduction techniques (e.g., Au tomated exposure control, adjustment of the mA and/or kV according to patient size, use of iterative reconstruction technique) 2010 [employer]- All Rights Reserved
[2017-03-13] MEDS ORDERED: ONDANSETRON HCL INJ/PF 4 MG/2 ML SDV IV ONE (20:01)
[2017-03-13] MEDS ORDERED: DICYCLOMINE HCL INJ 20 MG/2 ML AMPULE IM PRN (20:01)
[2017-03-13 21:15] VITALS: BP 137/67
== END 2017-03-13 20:55 | disposition home or self-care (01) ==
LOC: ER 17:10
DX: R11.2 Nausea with vomiting, unspecified (principal); R19.7 Diarrhea, unspecified; R10.32 Left lower quadrant pain; E10.8 Type 1 diabetes mellitus with unspecified complications
CPT/HCPCS: 99284; 96372; 96361; 96374; 96375; 36415; 83690; 85025; 80053; 81001; 83605; 74177; J0500; J2270; J2405; J7040

== ENCOUNTER → 2017-08-05 | Outpatient (CLI) | payer MEDICARE, BC ==
--- NOTE | 2017-08-05 11:42 | ST Modified Barium Swallow ---
Recommendation - Recommendations Recommendations: Safe swallow function, recommend use of dry swallow or liquid wash to ensure residue clearance. No direct intervention indicated at this time , but should be considered if swallowing deficits increase. Medical Diagnoses - Medical Diagnoses Medical Diagnosis Description & ICD-10 Code(s): dysphagia, R13.10 Other Medical Diagnoses/Co-Morbidities: per patient report: reflux, TIA approximately [address] Modified Barium Swallow - General Date: 08/05/17 Risks/Precautions: None Reason for Referral: globus sensation - History History obtained from: Patient -: Medical - Patient reports having difficulty " for 4 years" with certain foods "getting stuck" in the throat. States that he is specifically avoiding rice, and has to be careful with meats. No recent pneumonia reported, no specific onset fo swallowing deficits reported. Medications: Patient unable to list medications, did state that he was on a reflux medication. Allergies: patient reports steroid allergy - Functional Status Prior Functional Status: INDEPENDENT: feeding - independent Current Functional Limitations: feeding - independently modifying diet - Subjective Patient/caregiver goal(s): better swallow Cognitive-Linguistic Function: WNL Speech Intelligibility: WNL Current Nutritional Means: PO Current PO diet: Regular Current symptoms: Coughing, c/o Globus sensation Pain: Patient reports, 0/5 - Objective Assessment: Upright, Left Lateral - Food Trials Used Food trials used: Thin liquids, Pureed, Regular The patient: Was Able to Self Feed - Assessment Oral prep: Normal Labial closure: Adequate Leakage: None Mastication: Adequate Lingual Movement: Normal Oral stage: Age appropriate - Pharyngeal Stage Initiation of Pharyngeal Stage Reflex: Normal Decreased laryngeal elevation: No Reduced Velopharyngeal Closure: no Reduced pressure generation: Yes - mild reduced tongue-based retraction: No Pre-swallow pooling in valleculae: None Pre-Swallow pooling in pyriforms: None Reduced Thyro-Hyoid approximation: No Reduced epiglottic excursion: No Multiple Swallows with: Cleared w/ Liquid Assist Post-swallow residulas vallecular: Mild Post-Swallow residuals in pyriforms: None - Fall Risk Assessment Medications/Conditions that increase fall risks include: Antidepressants, sedatives, anti-arrhythmic, diuretic, benzodiazipenes, neuroleptics. BP regulation problems, cardiac problems, balance or gait deficits, neurological problems. Is patient considered at risk for falls: no Fall Risk Actions Taken: No action needed - Behavioral Observations During evaluation process patient: was pleasant, provided medical history Mental Status: Alert & Oriented X3 - Treatment / Educational Needs: Treatment/Education Needs: Treatment consisted of patient education on the role of the Speech Pathologist. Patient's plan of care and golas were communicated as well as scheduling and attendance policies. Recommendations for initial home program were shared. Patient demonstrated understanding and verbalized agreement. - Impression/Summary Laryngeal Penetration: No Tracheal Aspiration: no Patient presents with: Pharyngeal stage dysph., Mild-Moderate Risk of Aspiration: Minimal Risk of nutritional compromise: None Evaluation and Findings: Patient presents with mild pharyngeal phase dysphagia characterized by mild residue of regular solids in valleculae. This cleared well with dry swallow and liquid wash. Patient educated on strategies. No further intervention indicated at this time. Should swallowing deficits increase , should consider dysphagia treatment. - Recommendations Solid diet recommendations: Regular Liquid Diet Modification: Thin Pt/Family education and followup with MD: Yes Dysphagia therapy with CHIEF INFORMATION OFFICER: no Recommended techniques: Fully Upright During Meal, Alternate Bites/Sips Information, Precautions and Recommendations: Patient (Written), Patient (Verbal ) - Time Total Time: 25 - Plan of Care Patient to follow-up with referring physician: Yes Strategies to optimize patient understanding include:: ongoing assessment of educational needs, implementation of educational strategies, and re-education. - - -: Thank you for the opportunity to work with this patient and his/her family. Should you have any questions about this patient's plan or progress, I can be reached at [phone]. Charge G Code? - - -: Yes ST F.L. Impairment Category - Rationale Based On Rationale Based On: Func. Asses. Tool Results - Swallowing Current G8996: CI 1-19% Impaired Goal G8997: CI 1-19% Impaired Discharge G8998: CI 1-19% Impaired
--- NOTE | 2017-08-09 11:13 | RADIOLOGY REPORT (SQ) ---
EXAM DESCRIPTION: EUGENIA SWALLOW COMPLETED DATE/TIME: 08/05/2017 9:00 am REASON FOR STUDY: R13.10 DYSHAGIA, UNSPECIFIED R13.10 DYSPHAGIA, UNSPECIFIED FOOD IN PHARYNX CAUSIN G OTHER INJURY, SEQUELA T17.228 S COMPARISON: None. TECHNIQUE: Videofluoroscopic swallowing examination was performed in conjunction with speech patholo gy. Videofluoroscopic imaging was obtained and reviewed and these are the findings: RADIATION DOSE: Total fluoroscopy time: 1 minutes 24 seconds 1 fluoroscopy image saved to PACS. LIMITATIONS: None FINDINGS: The patient was brought into the fluoro room and placed upright on a modified barium swall ow chair. The patient was then given multiple consistencies mixed with barium to swallow under live fluoroscopic video guidance. According to the Speech Pathologist there was no laryngeal penetration or tracheal aspiration. Normal oral and pharyngeal transit time was observed. Mild post swallow res iduals are noted within the vallecula with solid consistencies. Please see speech pathology report f or further details and recommendations. IMPRESSION: NO EVIDENCE OF LARYNGEAL PENETRATION OR TRACHEAL ASPIRATION.PLEASE SEE SPEECH PATHOLOGIS T REPORT FOR OTHER FINDINGS AND RECOMMENDATIONS. COMMENT: Quality ID [id number]: Final reports for procedures using fluoroscopy that document radiation exp osure indices, or exposure time and number of fluorographic images (if radiation exposure indices are not available) TECHNICAL DOCUMENTATION: JOB ID: [id number] [employer]- All Rights Reserved
== END ==
LOC: RAD 07:58
PROVIDERS: ATTEND Otolaryngology
DX: R13.10 Dysphagia, unspecified (principal); K21.9 Gastro-esophageal reflux disease without esophagitis
CPT/HCPCS: 74230; 92611; G8996; G8997; G8998

== ENCOUNTER → 2018-08-04 | Outpatient (CLI) | payer MEDICARE, BC ==
[2018-08-04 13:36] LABS: ABSOLUTE BASOPHILS # (AUTO) 0.1 10^3/uL (0.0-0.2); ABSOLUTE EOSINOPHILS # (AUTO) 0.6 10^3/uL (0.0-0.6); ABSOLUTE LYMPHOCYTES (AUTO) 1.5 10^3/uL (0.5-4.7); ABSOLUTE MONOCYTES (AUTO) 0.5 10^3/uL (0.1-1.4); ABSOLUTE NEUT (AUTO) 4.8 10^3/uL (1.7-8.2); BASOPHILS % (AUTO) 0.9 % (0-2); EOSINOPHILS % (AUTO) 7.8 % (0-6); HEMATOCRIT 35.3 % (37.9-51.0); HEMOGLOBIN 12.4 g/dL (13.5-17.0); LYMPHOCYTES % (AUTO) 20.1 % (13-45); MEAN CORPUSCULAR HEMOGLOBIN 30.6 pg (27.0-33.4); MEAN CORPUSCULAR HGB CONC 35.2 g/dL (32.0-36.0); MEAN CORPUSCULAR VOLUME 87 fl (80-97); MONOCYTES % (AUTO) 7.3 % (3-13); PLATELET COUNT 178 10^3/uL (150-450); RED BLOOD COUNT 4.06 10^6/uL (4.35-5.55); RED CELL DISTRIBUTION WIDTH 13.6 % (11.5-14.0); SEGMENTED NEUTROPHILS % (AUTO) 63.9 % (42-78); TOTAL CELLS COUNTED % (AUTO) 100 %; WHITE BLOOD COUNT 7.5 10^3/uL (4.0-10.5)
[2018-08-04 13:59] LABS: ALANINE AMINOTRANSFERASE 16 U/L (21-72); ALBUMIN 3.7 g/dL (3.5-5.0); ALKALINE PHOSPHATASE 91 U/L (38-126); ANION GAP 13 (5-19); ASPARTATE AMINO TRANSFERASE 22 U/L (17-59); BILIRUBIN,DIRECT 0.3 mg/dL (0.0-0.4); BILIRUBIN,TOTAL 0.6 mg/dL (0.2-1.3); BLOOD UREA NITROGEN 26 mg/dL (7-20); CALCIUM 9.3 mg/dL (8.4-10.2); CARBON DIOXIDE 27 mmol/L (22-30); CHLORIDE 98 mmol/L (98-107); GLUCOSE 364 mg/dL (75-110); POTASSIUM 5.1 mmol/L (3.6-5.0); TOTAL PROTEIN 6.8 g/dL (6.3-8.2)
== END ==
LOC: OD 12:40
PROVIDERS: ATTEND Physician Assistant
DX: L12.0 Bullous pemphigoid (principal)
CPT/HCPCS: 36415; 80053; 85025

== ENCOUNTER 2018-08-26 07:52 | Observation (INO) | payer MEDICARE, BC ==
[2018-08-26 08:20] LABS: ABSOLUTE BASOPHILS # (AUTO) 0.1 10^3/uL (0.0-0.2); ABSOLUTE EOSINOPHILS # (AUTO) 0.5 10^3/uL (0.0-0.6); ABSOLUTE MONOCYTES (AUTO) 0.6 10^3/uL (0.1-1.4); ABSOLUTE NEUT (AUTO) 5.4 10^3/uL (1.7-8.2); EOSINOPHILS % (AUTO) 5.9 % (0-6); HEMATOCRIT 33.6 % (37.9-51.0); HEMOGLOBIN 11.6 g/dL (13.5-17.0); LYMPHOCYTES % (AUTO) 13.6 % (13-45); MEAN CORPUSCULAR HEMOGLOBIN 30.4 pg (27.0-33.4); MEAN CORPUSCULAR HGB CONC 34.4 g/dL (32.0-36.0); MEAN CORPUSCULAR VOLUME 88 fl (80-97); MONOCYTES % (AUTO) 8.4 % (3-13); PLATELET COUNT 156 10^3/uL (150-450); RED BLOOD COUNT 3.82 10^6/uL (4.35-5.55); RED CELL DISTRIBUTION WIDTH 13.8 % (11.5-14.0); SEGMENTED NEUTROPHILS % (AUTO) 71.1 % (42-78); TOTAL CELLS COUNTED % (AUTO) 100 %; WHITE BLOOD COUNT 7.7 10^3/uL (4.0-10.5)
[2018-08-26 08:29] LABS: ALANINE AMINOTRANSFERASE 17 U/L (21-72); ALBUMIN 3.6 g/dL (3.5-5.0); ALKALINE PHOSPHATASE 90 U/L (38-126); ANION GAP 13 (5-19); ASPARTATE AMINO TRANSFERASE 19 U/L (17-59); BILIRUBIN,DIRECT 0.2 mg/dL (0.0-0.4); BILIRUBIN,TOTAL 0.6 mg/dL (0.2-1.3); BLOOD UREA NITROGEN 31 mg/dL (7-20); CALCIUM 9.4 mg/dL (8.4-10.2); CARBON DIOXIDE 27 mmol/L (22-30); CHLORIDE 101 mmol/L (98-107); CREATINE KINASE 65 U/L (55-170); GLUCOSE 210 mg/dL (75-110); POTASSIUM 4.2 mmol/L (3.6-5.0); SODIUM 141.4 mmol/L (137-145); TOTAL PROTEIN 6.5 g/dL (6.3-8.2)
[2018-08-26 08:41] LABS: CREATINE KINASE MB 1.11 ng/mL (<4.55)
[2018-08-26 08:43] LABS: TROPONIN I 0.035 ng/mL
[2018-08-26 09:03] LABS: APPEARANCE,URINE SLIGHTLY-CLOUDY; BILIRUBIN,URINE NEGATIVE (NEGATIVE); COLOR,URINE YELLOW; GLUCOSE, URINE 150 mg/dL (NEGATIVE); KETONES,URINE NEGATIVE (NEGATIVE); LEUKOCYTE ESTERASE,URINE NEGATIVE (NEGATIVE); NITRITE,URINE NEGATIVE (NEGATIVE); PROTEIN,URINE 30 mg/dL (NEGATIVE); URINE SPECIFIC GRAVITY 1.018; UROBILINOGEN,URINE NEGATIVE mg/dL (<2.0)
--- NOTE | 2018-08-26 09:26 | EKG REPORT ---
SEVERITY:- ABNORMAL ECG - SINUS RHYTHM CONSIDER ANTEROSEPTAL INFARCT ABNORMAL T, CONSIDER ISCHEMIA, LATERAL LEADS : Confirmed by: Teresita Coronado 26-Aug-2018 09:26:16
--- NOTE | 2018-08-26 09:52 | ER Document Report ---
ED General - General Chief Complaint: Near Syncope Stated Complaint: WEAKNESS Time Seen by Provider: 08/26/18 08:09 Mode of Arrival: Medic Information source: Patient Notes: Patient is a 77-year-old male who presents with chief complaint of near syncope. He arrives via EMS. He states that he had an episode early this morning where he felt like his blood sugar was dropping. He states he then went out to eat breakfast in his usual restaurant at which point he began feeling a very faint, had epigastric/substernal chest squeezing and pins and needles in his left hand. He denies any nausea or diaphoresis. On arrival he states that all symptoms have resolved and he is feeling fine. He reports past medical history of TIA, ID x13 and a triple bypass. He sees Dr. Vera at [facility] for cardiology. TRAVEL OUTSIDE OF THE [place] IN LAST 30 DAYS: No - Related Data Allergies/Adverse Reactions: prednisone Adverse Reaction (Verified 08/26/18 13:36) Past Medical History - Social History Smoking Status: Never Smoker Chew tobacco use (# tins/day): No Frequency of alcohol use: None Drug Abuse: None Family History: Reviewed & Not Pertinent Patient has suicidal ideation: No Patient has homicidal ideation: No - Past Medical History Cardiac Medical History: Reports: Hx Heart Attack - ID x13, Hx Hypertension Denies: Hx Coronary Artery Disease Pulmonary Medical History: Reports: Hx Pneumonia - hx of Denies: Hx Asthma, Hx Bronchitis, Hx COPD Neurological Medical History: Denies: Hx Cerebrovascular Accident, Hx Seizures Endocrine Medical History: Reports: Hx Diabetes Mellitus Type 2 Renal/ Medical History: Denies: Hx Peritoneal Dialysis Malignancy Medical History: Reports Hx Prostate Cancer Musculoskeletal Medical History: Reports Hx Arthritis - hands Past Surgical History: Reports: Hx Cardiac Surgery - triple bypass, Hx Coronary Artery Bypass Graft. Denies: Hx Pacemaker - Immunizations Hx Diphtheria, Pertussis, Tetanus Vaccination: Yes - unsure of date Physical Exam - Vital signs Vitals: Resp BP Pulse Ox 15 83/71 L 98 08/26/18 08:41 08/26/18 08:41 08/26/18 08:41 - Notes Notes: PHYSICAL EXAMINATION: GENERAL: Well-appearing, well-nourished and in no acute distress. HEAD: Atraumatic, normocephalic. EYES: Pupils equal round and reactive to light, extraocular movements intact, sclera anicteric, conjunctiva are normal. ENT: Nares patent, oropharynx clear without exudates. Moist mucous membranes. NECK: Normal range of motion, supple without lymphadenopathy LUNGS: Breath sounds clear to auscultation bilaterally and equal. No wheezes rales or rhonchi. HEART: Regular rate and rhythm without murmurs ABDOMEN: Soft, nontender, nondistended abdomen. No guarding, no rebound. No masses appreciated. Musculoskeletal: Normal range of motion, no pitting or edema. No cyanosis. NEUROLOGICAL: Cranial nerves grossly intact. Normal speech, normal gait. Normal sensory, motor exams PSYCH: Normal mood, normal affect. SKIN: Warm, Dry, normal turgor, no rashes or lesions noted. Course - Re-evaluation Re-evalutation: Patient is awake, alert and oriented on arrival. He currently has no complaints. He denied any chest pain or pressure to the nursing staff however he told me that he did have a squeezing sensation in the lower part of his chest while he was still at the restaurant. Patient does have some T wave inversions on his EKG today which is changed from previous EKG done on 12/05/16. He does have an indeterminate troponin today of 0.035. His vital signs are stable at this time and he is chest pain-free. Will repeat troponin in 3 hours. Repeat troponin 0.028. Called and spoke with Dr. Fernandez, Dock Manager who agrees that patient can be admitted here to [place]. I then called and spoke to who agrees to admit patient. - Vital Signs Vital signs: Temp Pulse Resp BP Pulse Ox 98.6 F 75 16 144/67 H 99 08/26/18 14:12 08/26/18 14:12 08/26/18 14:12 08/26/18 14:12 08/26/18 14:12 - Laboratory Result Diagrams: 08/26/18 08:00 08/26/18 08:00 Laboratory results interpreted by me: 08/26/18 08/26/18 08/26/18 07:59 08:00 08:00 RBC 3.82 L Hgb 11.6 L Hct 33.6 L BUN 31 H Creatinine 1.48 H Est GFR ( Amer) 56 L Est GFR (Non-Af Amer) 46 L Glucose 210 H POC Glucose 225 H ALT 17 L Urine Protein Urine Glucose (UA) 08/26/18 08:45 RBC Hgb Hct BUN Creatinine Est GFR ( Amer) Est GFR (Non-Af Amer) Glucose POC Glucose ALT Urine Protein 30 H Urine Glucose (UA) 150 H Discharge - Discharge Clinical Impression: Near syncope Chest pain Qualifiers: Chest pain type: unspecified Qualified Code(s): R07.9 - Chest pain, unspecified Condition: Stable Disposition: ADMITTED INPATIENT Admitting Provider: Hospitalist
[2018-08-26] MEDS ORDERED: ASPIRIN 81 MG TABLET, CHEWABLE PO ONE (10:44)
--- NOTE | 2018-08-26 11:19 | RADIOLOGY REPORT (SQ) ---
EXAM DESCRIPTION: CHEST SINGLE VIEW COMPLETED DATE/TIME: 08/26/2018 11:02 am REASON FOR STUDY: chest pain COMPARISON: 11/21/2015 EXAM PARAMETERS: NUMBER OF VIEWS: One view. TECHNIQUE: Single frontal radiographic view of the chest acquired. RADIATION DOSE: NA LIMITATIONS: None. FINDINGS: LUNGS AND PLEURA: Asymmetric opacity in the left lung base is again noted and stable from 11/21/2015. Suspect this represents overlying soft tissue. No pneumothorax. No definite effusions. MEDIASTINUM AND HILAR STRUCTURES: No masses. Contour normal. HEART AND VASCULAR STRUCTURES: Normal size. No failure. BONES: No acute findings. HARDWARE: Sternotomy wires are in place. OTHER: No other significant finding. IMPRESSION: NO ACUTE RADIOGRAPHIC FINDING IN THE CHEST. TECHNICAL DOCUMENTATION: JOB ID: [id number] [employer]- All Rights Reserved Reading location - IP/workstation name: [email or web address]
[2018-08-26] MEDS ORDERED: ACETAMINOPHEN 325 MG TABLET PO PRN (12:32)
[2018-08-26] MEDS ORDERED: ONDANSETRON HCL INJ/PF 4 MG/2 ML SDV IV PRN (12:32)
[2018-08-26] MEDS ORDERED: OXYCODONE-ACETAMINOPHEN 5-325 MG TABLET PO PRN (12:32)
[2018-08-26] MEDS ORDERED: ZOLPIDEM TARTRATE 5 MG TABLET PO PRN (12:32)
[2018-08-26] MEDS ORDERED: IPRATROPIUM/ALBUTEROL 0.5-2.5 MG/3 ML AMPUL NEB PRN (12:32)
[2018-08-26] MEDS ORDERED: GLUCAGON,HUMAN RECOMB 1 MG INJ IM PRN (13:02)
[2018-08-26] MEDS ORDERED: DEXTROSE 40% GEL 15 GM TUBE PO PRN ×2 (13:02)
[2018-08-26] MEDS ORDERED: DEXTROSE 50%-WATER 25 GM/50 ML DISP.SYRIN IV PRN ×2 (13:02)
[2018-08-26] MEDS ORDERED: NITROGLYCERIN 0.4 MG/TAB 25 TAB/BOTTLE SL PRN (13:38)
--- NOTE | 2018-08-26 16:22 | RADIOLOGY REPORT (SQ) ---
EXAM DESCRIPTION: CT HEAD WITHOUT COMPLETED DATE/TIME: 08/26/2018 4:03 pm REASON FOR STUDY: syncipe syncope COMPARISON: CT brain 11/25/2016 TECHNIQUE: Axial images acquired through the brain without intravenous contrast. Images reviewed wi th bone, brain and subdural windows. Additional sagittal and coronal reconstructions were generated. Images stored on PACS. All CT scanners at this facility use dose modulation, iterative reconstruction, and/or weight based d osing when appropriate to reduce radiation dose to as low as reasonably achievable (ALARA). [facility]: Dose Right [facility]: CareDose [facility]: Dose Right [facility]: Teradose 4D [facility]: Aeropost RADIATION DOSE: CT Rad equipment meets quality standard of care and radiation dose reduction techniq ues were employed. CTDIvol: 48.6 mGy. DLP: 954 mGy-cm. mGy. LIMITATIONS: None. FINDINGS: VENTRICLES: Normal size and contour. CEREBRUM: No masses. No hemorrhage. No midline shift. No evidence for acute infarction. Normal gra y/white matter differentiation. No areas of low density in the white matter. CEREBELLUM: No masses. No hemorrhage. No alteration of density. No evidence for acute infarction. EXTRAAXIAL SPACES: No fluid collections. No masses. ORBITS AND GLOBE: No intra- or extraconal masses. Normal contour of globe without masses. CALVARIUM: No fracture. PARANASAL SINUSES: No fluid or mucosal thickening. SOFT TISSUES: No mass or hematoma. OTHER: No other significant finding. IMPRESSION: NORMAL BRAIN CT WITHOUT CONTRAST. EVIDENCE OF ACUTE STROKE: NO. COMMENT: Quality ID # [id number]: Final reports with documentation of one or more dose reduction techniques (e.g., Automated exposure control, adjustment of the mA and/or kV according to patient size, use of iterative reconstruction technique) TECHNICAL DOCUMENTATION: JOB ID: [id number] [employer]- All Rights Reserved Reading location - IP/workstation name: [facility]-[email or web address]
[2018-08-26] MEDS: DOCUSATE SODIUM 100 MG/10 ML UDC PO SCH (17:32)
[2018-08-26] MEDS: INSULIN LISPRO 100 UNIT/ML 3 ML VIAL SUBCUT PRN ×2 (17:46→17:47)
[2018-08-26 18:13] LABS: CREATINE KINASE MB 0.92 ng/mL (<4.55); TROPONIN I 0.029 ng/mL
[2018-08-26] MEDS: METOPROLOL TARTRATE 50 MG TABLET PO SCH (21:04)
[2018-08-26] MEDS: FAMOTIDINE 20 MG TABLET PO SCH (21:05)
[2018-08-26] MEDS ORDERED: SIMVASTATIN 40 MG TABLET PO SCH (22:00)
[2018-08-26 22:44] LABS: CREATINE KINASE MB 0.88 ng/mL (<4.55); TROPONIN I 0.035 ng/mL
[2018-08-27 01:31] LABS: CREATINE KINASE MB 0.84 ng/mL (<4.55); TROPONIN I 0.03 ng/mL
[2018-08-27 05:17] LABS: INTERNATIONAL RATION (INR) 1.02; PROTHROMBIN TIME 13.9 SEC (11.4-15.4)
[2018-08-27 05:28] LABS: CHOLESTEROL 133.75 mg/dL (0-200); TRIGLYCERIDES 154 mg/dL (<150)
[2018-08-27 05:40] LABS: DIRECT LDL 85 mg/dL (<100)
[2018-08-27 05:43] LABS: VLDL CHOLESTEROL 30.8 mg/dL (10-31)
[2018-08-27] MEDS: INSULIN LISPRO 100 UNIT/ML 3 ML VIAL SUBCUT PRN (07:50)
--- NOTE | 2018-08-27 09:18 | EKG REPORT ---
SEVERITY:- ABNORMAL ECG - SINUS RHYTHM CONSIDER ANTEROSEPTAL INFARCT ABNORMAL T, CONSIDER ISCHEMIA, LATERAL LEADS VS LVH : Confirmed by: Teresita Coronado 27-Aug-2018 09:18:29
--- NOTE | 2018-08-27 09:18 | EKG REPORT ---
SEVERITY:- ABNORMAL ECG - SINUS RHYTHM ABNORMAL T, CONSIDER ISCHEMIA, LATERAL LEADS vs LVH : Confirmed by: Terestia Coronado 27-Aug-2018 09:18:01
--- NOTE | 2018-08-27 09:33 | XCELERA REPORT ---
[address] [address] Transthoracic Echocardiogram Report Name: SRIDEVI GREENWOOD Age: 77 yrs Gender: Male : 1940 Patient Status: Inpatient Patient Location: [address] [place] [address] Study Date: 08/26/2018 07:23 PM Height: 65 in Weight: 181 lb BSA: 1.9 m2 Procedure: A complete two-dimensional transthoracic echocardiogram was performed (2D, M-mode, spectral and color flow Doppler). The study was technically adequate with some images being suboptimal in quality. Reason For Study: chest pain Ordering Physician: FRANCY ROMERO Performed By: Kathy Terrell Interpretation Summary The left ventricle is grossly normal size. There is mild concentric left ventricular hypertrophy. Left ventricular systolic function is low normal. Doppler measurements suggest pseudonormalized left ventricular relaxation, which is associated with grade II/IV or mild to moderate diastolic dysfunction Not all wall segments were well visualized. Wall motion cannot be accurately commented on, but no definite regional wall motion abnormalities noted. The right ventricular systolic function is normal. The left atrium is mildly dilated. The right atrium is normal in size There is a trace amount of mitral regurgitation There is no mitral valve stenosis. No aortic regurgitation is present. There is no aortic valve stenosis There is a trace or physiologic amount of tricuspid regurgitation There is no tricuspid stenosis. The aortic root is not well visualized but is probably normal size. The inferior vena cava appeared normal and decreased > 50% with respiration (RAP 5-10 mmHg) Minimal pericardial effusion. MMode/2D Measurements & Calculations RVDd: 2.3 cm LVIDd: 5.8 cm FS: 23.8 % Ao root diam: 2.7 cm IVSd: 0.97 cm LVIDs: 4.4 cm EDV(Teich): 164.2 ml Ao root area: 5.8 cm2 LVPWd: 1.1 cm ESV(Teich): 87.3 ml ACS: 2.0 cm EF(Teich): 46.8 % Doppler Measurements & Calculations MV E max moni: MV P1/2t max moni: Ao V2 max: AI max moni: 99.7 cm/sec 121.8 cm/sec 97.7 cm/sec 166.0 cm/sec MV A max moni: MV P1/2t: 65.8 msec Ao max PG: AI max P.6 cm/sec MVA(P1/2t): 3.3 cm2 3.8 mmHg 11.0 mmHg MV E/A: 0.89 MV dec slope: AI dec slope: 105.5 cm/sec2 542.0 cm/sec2 AI P1/2t: MV dec time: 0.19 sec 460.8 msec LV V1 max PG: PA V2 max: TR max moni: AV P1/2t-pr_phl: 2.2 mmHg 82.5 cm/sec 211.0 cm/sec 460.8 msec LV V1 max: PA max P.7 mmHg TR max P.5 cm/sec 17.8 mmHg MV P1/2t-pr_phl: 65.8 msec Left Ventricle The left ventricle is grossly normal size. There is mild concentric left ventricular hypertrophy. Left ventricular systolic function is low normal. Doppler measurements suggest pseudonormalized left ventricular relaxation, which is associated with grade II/IV or mild to moderate diastolic dysfunction. Not all wall segments were well visualized. Wall motion cannot be accurately commented on, but no definite regional wall motion abnormalities noted. Right Ventricle The right ventricle is grossly normal size. There is normal right ventricular wall thickness. The right ventricular systolic function is normal. Atria The right atrium is normal in size. The left atrium is mildly dilated. Interarterial septum not well visualized and not well dopplered. Cannot comment on ASD/PFO presence. Mitral Valve The mitral valve leaflets are sclerotic, but show no functional abnormalities. There is no mitral valve stenosis. There is a trace amount of mitral regurgitation. Aortic Valve The aortic valve is grossly normal. There is no aortic valve stenosis. No aortic regurgitation is present. Tricuspid Valve The tricuspid valve is not well visualized, but is grossly normal. There is no tricuspid stenosis. There is a trace or physiologic amount of tricuspid regurgitation. Pulmonic Valve The pulmonic valve is not well visualized. Great Vessels The aortic root is not well visualized but is probably normal size. The inferior vena cava appeared normal and decreased > 50% with respiration (RAP 5-10 mmHg). Effusions Minimal pericardial effusion. : FRANCY ROMERO > Teresita Coronado
[2018-08-27] MEDS ORDERED: ENOXAPARIN SODIUM INJ 40 MG/0.4 ML DISP.SYRIN SUBCUT SCH (10:00)
[2018-08-27] MEDS ORDERED: ISOSORBIDE MONONITRATE 30 MG TAB.ER.24H PO SCH (10:00)
[2018-08-27] MEDS ORDERED: LISINOPRIL 10 MG TABLET PO SCH (10:00)
[2018-08-27] MEDS ORDERED: ASPIRIN 325 MG TABLET PO SCH (10:00)
[2018-08-27] MEDS: FAMOTIDINE 20 MG TABLET PO SCH (11:53)
[2018-08-27] MEDS: METOPROLOL TARTRATE 50 MG TABLET PO SCH (11:53)
[2018-08-27] MEDS: DOCUSATE SODIUM 100 MG/10 ML UDC PO SCH (11:53)
[2018-08-27 12:27] VITALS: BP 144/67
--- NOTE | 2018-08-28 12:02 | PROGRESS NOTE E ---
Progress Note NAME: SRIDEVI GREENWOOD : 1940 AGE: 77Y DATE: 08/27/2018 ROOM: 409 SUBJECTIVE: The patient is a pleasant 77-year-old male who has a past medical history of myocardial infarction, hypertension. 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 He came to the emergency room with chest pain. He was stabilized. So far, cardiac enzymes negative. Cardiology consulted. OBJECTIVE: GENERAL: The patient is lying in bed, comfortable, not in distress. VITAL SIGNS: Temperature 98.4, heart rate 66, respiratory rate 16, blood pressure 134/48. HEENT: Head normocephalic, atraumatic. Pupils round, reactive to light and accommodation bilaterally. Extraocular movements intact. Ears: Tympanic membranes intact bilaterally. No discharge from the ear. No discharge from the nose. NECK: Supple, no increased JVD, no thyromegaly, no lymphadenopathy. CARDIOVASCULAR: Normal S1, S2. Regular rate and rhythm. No murmur, no gallop. RESPIRATORY: Lungs clear. ABDOMEN: Soft, nontender. MUSCULOSKELETAL: No edema. NEUROLOGIC: Awake, alert. SKIN: No rash. LABORATORY DATA: White blood count 7.7, hemoglobin 11.6. Creatinine is 1.4. Magnesium 1.8. Triglycerides 154. ASSESSMENT AND PLAN: 1. CHEST PAIN, RULE OUT [place]. 2. CORONARY ARTERY DISEASE. 3. HYPERTENSION. 4. HYPERLIPIDEMIA. Cardiac enzymes coming down. All negative now. PLAN: Will continue ongoing treatment for chest pain. Continue aspirin and statin and utilize lisinopril, metoprolol. We are waiting for cardiology consult. MEDICAL NECESSITY: The patient needs further evaluation for his chest pain. DICTATING PHYSICIAN: SHELLEY REYNOLDS M.D. [id number] PHY#: [id number] ID: [id number] JOB#: [id number] ACCT: [id number] cc: >
--- NOTE | 2018-08-28 17:17 | DISCHARGE SUMMARY E ---
Discharge Summary NAME: SRIDEVI GREENWOOD : 1940 AGE: 77Y ADMITTED: 08/26/2018 DISCHARGED: 08/27/2018 ADMISSION DIAGNOSIS: Chest pain, rule out TN. DISCHARGE DIAGNOSES: 1. Chest pain. TN was ruled out. 2. Coronary artery disease. 3. Diabetes type 2. 4. TIA. 5. Prostate cancer. 6. History of imaging echocardiogram, normal ejection fraction. HISTORY OF PRESENT ILLNESS: The patient is a pleasant 76-year-old male who had multiple admissions to the hospital. He has a history of an TN, hypertension, coronary artery disease, diabetes. The patient had heaviness in his chest and admitted to rule out TN. HOSPITAL COURSE: He had 3 sets of cardiac enzymes that were negative. He was treated with statin, aspirin, nitroglycerin. The patient is chest pain free at this point. He is being discharged home. DISCHARGE MEDICATIONS: 1. Imdur 15 mg daily. 2. Lisinopril. 3. Insulin Novolog 10 units before meals. 4. Lantus 15 units twice a day. 5. Lipitor 80 mg daily. 6. Aspirin 81 mg daily. 7. Atarax 10 mg at bedtime. 8. Tolterodine 4 mg daily. 9. Januvia 50 mg p.o. daily. 10. CellCept 500 mg q.12 hours. 11. Calcium. 12. Vitamin D3. PHYSICAL EXAMINATION: GENERAL: Upon discharge, patient lying in bed, comfortable, not in acute distress. VITAL SIGNS: Blood pressure 124/48, temperature 98.4, heart rate is 70. HEENT: Normocephalic, atraumatic. Pupils equal, round, reactive to light and accommodation bilaterally. Extraocular movements intact. Tympanic membranes intact bilaterally. No discharge from the ears. No discharge from the nose. NECK: Supple. No increased JVD. No thyromegaly. No lymphadenopathy. CARDIOVASCULAR: Normal S1, S2. Regular rate and rhythm. No gallop. RESPIRATORY: Lungs clear. LABORATORY DATA: White blood count 7.7, hemoglobin 11.6. Creatinine 1.4, sodium 141. DISCHARGE INSTRUCTIONS: Discharge patient home. Diet: Cardiac diet. Followup with the primary care physician in 1 week. Followup with Cardiology in 1 week. TIME SPENT: Forty-five minutes. DICTATING PHYSICIAN: SHELLEY REYNOLDS M.D. [id number] PHY#: [id number] ID: [id number] JOB#: [id number] ACCT: [id number] cc:Errol XIE M.D. ABDELAZIZ ELSANJAK, M.D. >
--- NOTE | 2018-08-29 09:20 | PDOC H&P ---
History of Present Illness Admission Date/PCP: 08/26/18 12:02 XENIA STYLES MD Patient complains of: Chest pain History of Present Illness: SRIDEVI GREENWOOD is a 77 year old male with history of coronary artery disease, status post triple bypass in 2006, 13 MIs, diabetes type 2, hypertension, osteoarthritis, congestive heart failure, COPD, gastroesophageal reflux disease , came to the emergency room with complaints of near syncope. According to the patient he woke up with high blood sugars he took extra insulin and went to his regular historian to eat his breakfast and he started feeling is that his blood sugars are going low on low and he felt dizzy and leaned onto the table also complaining of numbness in the both hands in association with the nausea and started having the left-sided pressure-like pain radiating to both shoulders and neck and was brought to the emergency room by EMS. The case was discussed with the hspt tutor by the ER team and they felt comfortable to admit the patient for observation here and also the hospital. Past Medical History Cardiac Medical History: Reports: Myocardial Infarction - AR x13, Hypertension Denies: Coronary Artery Disease Pulmonary Medical History: Reports: Pneumonia - hx of Denies: Asthma, Bronchitis, Chronic Obstructive Pulmonary Disease (COPD) Neurological Medical History: Denies: Seizures Endocrine Medical History: Reports: Diabetes Mellitus Type 2 Malignancy Medical History: Reports: Other - Prostate cancer Musculoskeltal Medical History: Reports: Arthritis - hands Hematology: Denies: Anemia Past Surgical History Past Surgical History: Reports: Coronary Artery Bypass Graft, Other - Prostate cancer with radiation implants Denies: Pacemaker Social History Smoking Status: Never Smoker Frequency of Alcohol Use: None Hx Recreational Drug Use: No Drugs: None Hx Prescription Drug Abuse: No Family History Family History: Reviewed & Not Pertinent Parental Family History Reviewed: Yes - Heart disease, diabetes, COPD. Children Family History Reviewed: Yes Sibling(s) Family History Reviewed.: Yes Medication/Allergy Home Medications: Atorvastatin Calcium [Lipitor 80 mg Tablet] 80 mg PO QHS 08/26/18 Betamethasone Dipropionate [Betamethasone Dipropionate Ointment] 1 applic TP BID 08/26/18 Hydroxyzine HCl [Atarax 10 mg Tablet] 10 mg PO Q6HP PRN 08/26/18 Hydroxyzine HCl [Atarax 10 mg Tablet] 20 mg PO HSP PRN 08/26/18 Insulin Aspart [Novolog Flexpen] 10 unit SUBCUT MEALS 08/26/18 Insulin Glargine,Hum.rec.anlog [Lantus Insulin Inj 300 Unit/3 ml Pen] 30 unit SUBCUT QHS 08/26/18 Isosorbide Mononitrate [Imdur 30 mg Tablet.er] 15 mg PO DAILY 08/26/18 Mupirocin [Bactroban 2% Ointment 22 gm] 1 applic TP TID 08/26/18 Mycophenolate Mofetil [Cellcept] 500 mg PO Q12 08/26/18 Sitagliptin Phosphate [Januvia 50 mg Tablet] 50 mg PO DAILY 08/26/18 Tolterodine Tartrate [Tolterodine Tartrate ER] 4 mg PO DAILY 08/26/18 Allergies/Adverse Reactions: prednisone Adverse Reaction (Verified 08/26/18 13:36) Review of Systems Constitutional: PRESENT: headache(s). ABSENT: fever(s) Ears: ABSENT: hearing changes Nose, Mouth, and Throat: PRESENT: headache(s). ABSENT: sore throat Cardiovascular: PRESENT: chest pain Respiratory: ABSENT: dyspnea, sputum Gastrointestinal: ABSENT: abdominal pain, constipation, diarrhea, hematemesis, hematochezia, nausea, vomiting Musculoskeletal: PRESENT: back pain Neurological: ABSENT: abnormal gait, abnormal speech, confusion, dizziness, focal weakness, syncope Psychiatric: ABSENT: anxiety, depression, homidical ideation, suicidal ideation Physical Exam Vital Signs: Temp Pulse Resp BP Pulse Ox 98.5 F 78 23 H 106/57 L 98 08/26/18 13:11 08/26/18 09:19 08/26/18 13:01 08/26/18 13:01 08/26/18 13:01 General appearance: PRESENT: no acute distress Head exam: PRESENT: atraumatic Eye exam: PRESENT: PERRLA Mouth exam: PRESENT: moist Neck exam: ABSENT: carotid bruit, JVD, lymphadenopathy, thyromegaly Respiratory exam: PRESENT: clear to auscultation iván. ABSENT: rales, rhonchi, wheezes Cardiovascular exam: PRESENT: RRR. ABSENT: diastolic murmur, rubs, systolic murmur GI/Abdominal exam: PRESENT: normal bowel sounds, soft. ABSENT: distended, guarding, mass, organolmegaly, rebound, tenderness Extremities exam: PRESENT: full ROM. ABSENT: calf tenderness, clubbing, pedal edema Neurological exam: PRESENT: alert, awake, oriented to person, oriented to place , oriented to time, oriented to situation, CN II-XII grossly intact. ABSENT: motor sensory deficit Psychiatric exam: PRESENT: appropriate affect, normal mood. ABSENT: homicidal ideation, suicidal ideation Results Impressions: Chest X-Ray 08/26/18 10:44 IMPRESSION: NO ACUTE RADIOGRAPHIC FINDING IN THE CHEST. Assessment & Plan - Diagnosis (1) Chest pain Qualifiers: Chest pain type: unspecified Qualified Code(s): R07.9 - Chest pain, unspecified Is this a current diagnosis for this admission?: Yes Plan: 08/26/2018-plan for chest pain today to place the patient in observation. Cardiology consult was requested. Echocardiogram was requested. And acute AR core measures were implemented. He is going to be on Lovenox 40 mg subcu daily. He is on beta-ash SHANDA inhibitor and statins. He was also started on aspirin 325 mg p.o. daily. Check enzymes x3 requested. Nitroglycerin 0.4 mg sublingual every 5 minutes for chest pain was requested. The initial troponin was 0.035 and the second troponin is 0.028. EKG was reviewed no changes in EKG compared to the previous EKG. Patient denies any chest pains when I saw him. (2) Coronary artery disease Is this a current diagnosis for this admission?: Yes Plan: 08/24/2018-patient has history of extensive coronary artery disease status post triple bypass in 2006 and he had 13 MIs. We are going to resume his home medications. We are going to do the workup for chest pain as mentioned above. (3) Hyperlipidemia Is this a current diagnosis for this admission?: Yes Plan: 08/26/2018 patient was started on simvastatin 20 mg p.o. nightly and be planning to check a lipid panel tomorrow. (4) Prostate cancer Is this a current diagnosis for this admission?: Yes Plan: 08/26/2018 patient has history of prostate cancer and he has a radiation implants in. He got I think Lupron injection yesterday.
== END 2018-08-27 13:01 | disposition home or self-care (01) ==
LOC: ER 07:52 → INTOOBSV 12:02 → EH 12:02 → 4N 13:45
PROVIDERS: ADMIT Internal Medicine; ATTEND Internal Medicine
DX: R07.89 Other chest pain (principal); I25.10 Atherosclerotic heart disease of native coronary artery without angina pectoris; E11.9 Type 2 diabetes mellitus without complications; G45.9 Transient cerebral ischemic attack, unspecified; C61 Malignant neoplasm of prostate; I25.2 Old myocardial infarction; I10 Essential (primary) hypertension; R51 Headache; M54.9 Dorsalgia, unspecified; E78.5 Hyperlipidemia, unspecified; M19.90 Unspecified osteoarthritis, unspecified site; Z79.899 Other long term (current) drug therapy; Z95.1 Presence of aortocoronary bypass graft; Z96.0 Presence of urogenital implants; Z92.3 Personal history of irradiation; Z79.4 Long term (current) use of insulin; Z86.73 Personal history of transient ischemic attack (TIA), and cerebral infarction without residual deficits; Z23 Encounter for immunization
CPT/HCPCS: 93005 ×2; 99285; 36415 ×2; 82553 ×2; 82962 ×2; 82550 ×2; 83735; 84443; 85025; 85610; 80053; 81001; 84484 ×2; 83036; 80061; 93306; 71045; 70450; 90686; 93010 ×2; G0378 ×3; G0008; A9270 ×11; J1650; J3490; 90471; J1815

== ENCOUNTER → 2019-01-23 | Outpatient (CLI) | payer MEDICARE, BC ==
[2019-01-23 16:52] LABS: ABSOLUTE BASOPHILS # (AUTO) 0.1 10^3/uL (0.0-0.2); ABSOLUTE EOSINOPHILS # (AUTO) 0.7 10^3/uL (0.0-0.6); ABSOLUTE LYMPHOCYTES (AUTO) 1.7 10^3/uL (0.5-4.7); ABSOLUTE MONOCYTES (AUTO) 0.5 10^3/uL (0.1-1.4); ABSOLUTE NEUT (AUTO) 2.1 10^3/uL (1.7-8.2); BASOPHILS % (AUTO) 1.2 % (0-2); EOSINOPHILS % (AUTO) 13.5 % (0-6); HEMATOCRIT 38.6 % (37.9-51.0); HEMOGLOBIN 13.4 g/dL (13.5-17.0); LYMPHOCYTES % (AUTO) 33.5 % (13-45); MEAN CORPUSCULAR HEMOGLOBIN 30.2 pg (27.0-33.4); MEAN CORPUSCULAR HGB CONC 34.8 g/dL (32.0-36.0); MEAN CORPUSCULAR VOLUME 87 fl (80-97); MONOCYTES % (AUTO) 10.5 % (3-13); PLATELET COUNT 193 10^3/uL (150-450); RED BLOOD COUNT 4.44 10^6/uL (4.35-5.55); RED CELL DISTRIBUTION WIDTH 13.5 % (11.5-14.0); SEGMENTED NEUTROPHILS % (AUTO) 41.3 % (42-78); TOTAL CELLS COUNTED % (AUTO) 100 %
[2019-01-23 17:08] LABS: IRON(TIBC) 57.6 ug/dL (49-181)
== END ==
LOC: OD 15:49
PROVIDERS: ATTEND Internal Medicine
DX: D64.9 Anemia, unspecified (principal)
CPT/HCPCS: 36415; 82272; 82728; 83540; 83550; 85025

== ENCOUNTER 2019-04-03 10:24 | Emergency (ER) | payer MEDICARE, BC ==
[2019-04-03 10:51] LABS: ABSOLUTE EOSINOPHILS # (AUTO) 0.4 10^3/uL (0.0-0.6); ABSOLUTE MONOCYTES (AUTO) 0.5 10^3/uL (0.1-1.4); ABSOLUTE NEUT (AUTO) 2.1 10^3/uL (1.7-8.2); BASOPHILS % (AUTO) 0.9 % (0-2); EOSINOPHILS % (AUTO) 9.4 % (0-6); HEMATOCRIT 33.8 % (37.9-51.0); HEMOGLOBIN 11.7 g/dL (13.5-17.0); LYMPHOCYTES % (AUTO) 25.2 % (13-45); MEAN CORPUSCULAR HGB CONC 34.5 g/dL (32.0-36.0); MEAN CORPUSCULAR VOLUME 87 fl (80-97); MONOCYTES % (AUTO) 11.8 % (3-13); PLATELET COUNT 212 10^3/uL (150-450); RED BLOOD COUNT 3.89 10^6/uL (4.35-5.55); RED CELL DISTRIBUTION WIDTH 13.3 % (11.5-14.0); SEGMENTED NEUTROPHILS % (AUTO) 52.7 % (42-78); TOTAL CELLS COUNTED % (AUTO) 100 %
[2019-04-03 11:13] LABS: ALANINE AMINOTRANSFERASE 20 U/L (21-72); ALBUMIN 3.6 g/dL (3.5-5.0); ALKALINE PHOSPHATASE 65 U/L (38-126); ANION GAP 8 (5-19); ASPARTATE AMINO TRANSFERASE 22 U/L (17-59); BILIRUBIN,DIRECT 0.3 mg/dL (0.0-0.4); BILIRUBIN,TOTAL 0.5 mg/dL (0.2-1.3); BLOOD UREA NITROGEN 30 mg/dL (7-20); CALCIUM 9.2 mg/dL (8.4-10.2); CARBON DIOXIDE 28 mmol/L (22-30); CHLORIDE 104 mmol/L (98-107); CREATINE KINASE 59 U/L (55-170); GLUCOSE 77 mg/dL (75-110); POTASSIUM 4.1 mmol/L (3.6-5.0); TOTAL PROTEIN 6.3 g/dL (6.3-8.2)
[2019-04-03 11:30] LABS: CREATINE KINASE MB 0.91 ng/mL (<4.55)
[2019-04-03 11:35] LABS: TROPONIN I < 0.012 ng/mL
--- NOTE | 2019-04-03 12:13 | ER Document Report ---
HPI - HPI Patient complains to provider of: hypoglycemia, near syncope Time Seen by Provider: 04/03/19 12:12 Onset: This morning Onset/Duration: Gradual, Gone Quality of pain: No pain Pain Level: Denies Context: 78 yr old male pt, with the listed pmh, here for a mild hypoglycemic episode after he took 6u of his regular insulin prior to eating around 930am which is h is usual dose but got delayed while he was going to get breakfast at [employer] per his usual routine and it took him longer to get his food than expected and he felt a little light headed and asked the staffing who apparently know him well to get him the sweetest thing they had and they did and he immediately consumed some cake and juice and felt better and has felt back to baseline since eating. he was brought in via ems. he never fully passed out. hx of this before when his sugar got low. per pt blood sugar was creeping back up and already in the 70s when ems got there after he had ate. he states he felt like his sugar was likely in the 40s when he was feeling light headed. he states since eating and he also had a breakfast sandwich that he has felt back to baseline and is asking to go home. no other changes in diet or meds. he has a cardiac hx but states his heart issues always felt different and he has had a neg cardiac workup in the last year per pt; however i do not have access to these records for review, pt states this just felt like when his sugar has gotten too low in the past due to him not eating after taking his insulin as soon as he should and usually does eat immediately after taking it. denies od attempt or intentional self harm. he denies any complaints currently and is requesting to be dc'd. he isn't on any betablockers. he denies any other preceding sx or associated sx or return of sx. he denies any recent illness or changes in meds or diet. no recent abx or steroids. no rash. no other associated sx. - REPRODUCTIVE Reproductive: DENIES: : - DERM Skin Color: Normal Past Medical History - General Information source: Patient - Social History Smoking Status: Unknown if Ever Smoked Frequency of alcohol use: None Drug Abuse: None Lives with: Family Family History: Reviewed & Not Pertinent Patient has suicidal ideation: No Patient has homicidal ideation: No - Past Medical History Cardiac Medical History: Reports: Hx Heart Attack - [place] x13, Hx Hypertension Denies: Hx Coronary Artery Disease Pulmonary Medical History: Reports: Hx Pneumonia - hx of Denies: Hx Asthma, Hx Bronchitis, Hx COPD Neurological Medical History: Denies: Hx Cerebrovascular Accident, Hx Seizures Endocrine Medical History: Reports: Hx Diabetes Mellitus Type 2 Renal/ Medical History: Denies: Hx Peritoneal Dialysis Malignancy Medical History: Reports Hx Prostate Cancer Musculoskeletal Medical History: Reports Hx Arthritis - hands Past Surgical History: Reports: Hx Cardiac Surgery - triple bypass, Hx Coronary Artery Bypass Graft, Other - Prostate cancer with radiation implants. Denies: Hx Pacemaker - Immunizations Immunizations up to date: Yes Vertical Provider Document - CONSTITUTIONAL Notes: GENERAL_APPEARANCE: well_nourished, alert, cooperative, no obvious discomfort. Pleasant, obese elderly white male, joking with family at bedside, smiling, speaking in full sentences, in no sign of pain or resp distress, easily sitting up. family at bedside. pt moving head and neck and extremities freely in no sign of pain, deficit, or dizziness/lightheadedness VITALS: reviewed, see vital signs table. HEAD: normocephalic and atraumatic, no raccoon eyes, no barrow signs. no swelling or ttp. EARS: canals_clear_bilat, TMs_clear, no_discharge_from_ears. no hemotympanum EYES: EOMI without pain, conjunctiva_clear. PERRL, eyelids wnl. no drainage. no ttp or crepitation of the orbits. no sign of orbital/periorbital cellulitis. no hyphema. MOUTH: no_lacerations inside_mouth. no broken teeth. no tmj clicking or ttp. pharynx wnl. tongue protrudes midline. no thrush or oral lesions. no tongue or lip swelling. uvula midline. normal speech. NOSE: no drainage or epistaxis NECK: no_swelling\tenderness on the neck. no midline bony tenderness. no step offs or deformities. full rom. full strength. no meningeal signs. no sign of central cord syndrome. no jvd. no carotid bruit HEART: normal_rate, normal_rhythm, LUNGS: ctab. no chest wall ttp. no overlying skin changes other than well healed midline sternal scar from pts prior remote cabg. no flail chest or crepitation. ABDOMEN: normal_BS, soft, no_abd_tenderness, no rebound, guarding, distension, or peritoneal signs. no cva ttp. no overlying skin changes. BACK: no midline bony tenderness. no step offs or deformities RECTAL: deferred, however, no sign of loss of bowel or bladder or soiling of clothing. EXTREMITIES: strength 5/5 in all_extremities, good pulses all_extremities, no_abrasions\lacerations in the extremities, no_swelling\tenderness in the extremities. full rom. normal gait. good hand machine cleaner. brisk cap refill. no emmett rtening or rotation of the limbs or other signs of deformities unless otherwise noted. neg phyllis sign. no foot drop. SKIN: warm, dry, good_color. no other grossly visible overlying skin changes or signs of trauma unless otherwise noted. NEURO: reflexes symmetric throughout, cranial nerves 2 - 12 intact, motor_intact, sensory_intact. cerebellar function intact. symmetric smile and faces. neg mary carmen hallpike. neg pronator drift. GLASCOW_COMA_SCORE: (adult) - eyes_open_spontaneously_4, verbal_ converses_and_oriented_5, motor_obeys_commands_6, glasgow_coma_total_15, MENTAL_STATUS: speech_clear, oriented_X_3, responds_appropriately to questions. - INFECTION CONTROL TRAVEL OUTSIDE OF THE [place] IN LAST 30 DAYS: No Course - Re-evaluation Re-evalutation: 04/03/19 14:57 pt here for a mild hypoglycemic episode after he took 6u of his regular insulin prior to eating but got delayed while he was going to get breakfast at [facility] per his usual routine and it took him longer to get his food than expected and he felt a little light headed and asked the staffing who apparently know him w ell to get him the sweetest thing they had and he immediately consumed some cake and juice and felt better. he never fully passed out. hx of this before when his sugar got low. per pt blood sugar was creeping back up to the 70s when ems got there after he had ate. he states it felt like it was likely in the 40s when he was feeling light headed. he states since eating and he also had a breakfast sa [facility] he has felt back to baseline and is asking to go home. no other changes in diet or meds. he has a cardiac hx but states his heart issues always felt different and this just felt like when his sugar has gotten too low in the past due to him not eating after taking his insulin as soon as he should and usually does. his labs were unremarkable other than a mild chronic anemia, mild chronic renal dz, mild orthostatic hypotension however will avoid fluids at this time and pt refused fluids given his sugar and repeat accucheck after several hours of monitoring have remained in the 170s. pt's be has been 140s most of his visit so his standing bp may be erroneous. he denied any sx on standing or sitting or lying during orthostatic bps per nusing. pt states he will increase his po intake. denies betablockers. no other preceding or associated sx. no ams. no seizure like activity. no fall or trauma no pain. ekg unremarkable and unchanged per review by dr zimmer. cxr neg per rad and reviewed by myself. pt informed of his findings. advised to f/u with pcp in 1-2 days for a recheck. return to the ed for any worsening sx. advised sx care. vss. he is well appearing. laughing, joking, and smiling with family at bedside. nontoxic. asking to be dc. has remained asymptomatic while here. pt understands and agrees to plan. he is neurononfocal. On reexam, pt remained stable. nontoxic. well appearing. tolerating po. requesting to go home. sugars have remained stable after observing pt several hours after incident. he was fed. he has remained neurononfocal. case discussed with ER Attending, Dr. zimmer, who directed and agrees with plan of care and advised no further workup indicated at this time and pt is stable for dc home with close f/u with pcp/specialist. Documentation achieved through voice recording which my lead to some occasional accidental typographical errors. Extensive efforts have been made to proof read documentation to make sure these are the least as possible. 04/03/19 14:58 Category Date Time Status Continuous Cardiac Monitoring (ED) CONTINUOUS Care 04/03/19 10:29 Completed EKG Documentation STAT Care 04/03/19 10:29 Completed Orthostatic Vital Sign (ED) NOW Care 04/03/19 13:25 Active Saline Lock (ED) NOW Care 04/03/19 10:29 Completed CHEST SINGLE VIEW [RAD] Stat Exams 04/03/19 12:15 Completed ADD ON [ADD ON TESTING BLD IN LAB] [CHEM] Stat Lab 04/03/19 10:39 Completed CBC WITH DIFF [HEME] Stat Lab 04/03/19 10:39 Completed COMPREHENSIVE METABOLIC PANEL [CHEM] Stat Lab 04/03/19 10:39 Completed CREATINE KINASE MB [CHEM] Stat Lab 04/03/19 10:39 Completed CREATINE KINASE [CHEM] Stat Lab 04/03/19 10:39 Completed MAGNESIUM [CHEM] Stat Lab 04/03/19 10:39 Completed T4 [FREE T4 (FREE THYROXINE)] [CHEM] Stat Lab 04/03/19 10:39 Completed THYROID STIMULATING HORMONE [CHEM] Stat Lab 04/03/19 10:39 Completed TROPONIN I [CHEM] Stat Lab 04/03/19 10:39 Completed URINALYSIS [URIN] Stat Lab 04/03/19 13:54 Completed EKG ER ONLY [ER] Stat Oth 04/03/19 10:29 Active - Vital Signs Vital signs: Temp Pulse Resp BP Pulse Ox 98 F 84 14 101/63 99 04/03/19 10:28 04/03/19 10:28 04/03/19 11:01 04/03/19 11:00 04/03/19 11:01 04/03/19 14:58 Temp Pulse Pulse Pulse Pulse Resp BP 04/03/19 13:48 89 91 83 04/03/19 13:01 20 04/03/19 13:00 19 157/96 H 04/03/19 12:59 25 H 04/03/19 12:01 23 H 04/03/19 12:00 12 135/71 H 04/03/19 11:59 20 04/03/19 11:01 14 04/03/19 11:00 13 101/63 04/03/19 10:59 12 04/03/19 10:35 14 04/03/19 10:28 98 F 84 16 BP BP BP BP Pulse Ox 04/03/19 13:48 125/71 94/65 L 143/71 H 04/03/19 13:01 sitting standing laying 100 04/03/19 13:00 98 04/03/19 12:59 99 04/03/19 12:01 97 04/03/19 12:00 97 04/03/19 11:59 98 04/03/19 11:01 99 04/03/19 11:00 98 04/03/19 10:59 97 04/03/19 10:35 97 04/03/19 10:28 105/63 99 - Laboratory Result Diagrams: 04/03/19 10:39 04/03/19 10:39 Laboratory results interpreted by me: 04/03/19 04/03/19 10:39 10:39 RBC 3.89 L Hgb 11.7 L Hct 33.8 L Eosinophils % 9.4 H BUN 30 H Creatinine 1.45 H Est GFR ( Amer) 57 L Est GFR (Non-Af Amer) 47 L ALT 20 L 04/03/19 14:58 Labs- All tests 24 hr 04/03/19 04/03/19 04/03/19 10:39 10:39 10:39 WBC 4.0 RBC 3.89 L Hgb 11.7 L Hct 33.8 L MCV 87 MCH 30.0 MCHC 34.5 RDW 13.3 Plt Count 212 Seg Neutrophils % 52.7 Lymphocytes % 25.2 Monocytes % 11.8 Eosinophils % 9.4 H Basophils % 0.9 Absolute Neutrophils 2.1 Absolute Lymphocytes 1.0 Absolute Monocytes 0.5 Absolute Eosinophils 0.4 Absolute Basophils 0.0 Sodium 140.0 Potassium 4.1 Chloride 104 Carbon Dioxide 28 Anion Gap 8 BUN 30 H Creatinine 1.45 H Est GFR ( Amer) 57 L Est GFR (Non-Af Amer) 47 L Glucose 77 POC Glucose Calcium 9.2 Magnesium Total Bilirubin 0.5 Direct Bilirubin 0.3 Neonat Total Bilirubin Not Reportable Neonat Direct Bilirubin Not Reportable Neonat Indirect Bili Not Reportable AST 22 ALT 20 L Alkaline Phosphatase 65 Creatine Kinase 59 CK-MB (CK-2) 0.91 Troponin I < 0.012 Total Protein 6.3 Albumin 3.6 TSH Free T4 Urine Color Urine Appearance Urine pH Ur Specific [place] Urine Protein Urine Glucose (UA) Urine Ketones Urine Blood Urine Nitrite Urine Bilirubin Urine Urobilinogen Ur Leukocyte Esterase Urine WBC (Auto) Urine RBC (Auto) U Hyaline Cast (Auto) Urine Mucus (Auto) Urine Ascorbic Acid 04/03/19 04/03/19 04/03/19 10:39 10:39 13:54 WBC RBC Hgb Hct MCV MCH MCHC RDW Plt Count Seg Neutrophils % Lymphocytes % Monocytes % Eosinophils % Basophils % Absolute Neutrophils Absolute Lymphocytes Absolute Monocytes Absolute Eosinophils Absolute Basophils Sodium Potassium Chloride Carbon Dioxide Anion Gap BUN Creatinine Est GFR ( Amer) Est GFR (Non-Af Amer) Glucose POC Glucose Calcium Magnesium 1.9 Total Bilirubin Direct Bilirubin Neonat Total Bilirubin Neonat Direct Bilirubin Neonat Indirect Bili AST ALT Alkaline Phosphatase Creatine Kinase CK-MB (CK-2) Troponin I Total Protein Albumin TSH 1.54 Free T4 1.25 Urine Color YELLOW Urine Appearance CLEAR Urine pH 5.0 Ur Specific [place] 1.016 Urine Protein NEGATIVE Urine Glucose (UA) 50 H Urine Ketones NEGATIVE Urine Blood NEGATIVE Urine Nitrite NEGATIVE Urine Bilirubin NEGATIVE Urine Urobilinogen NEGATIVE Ur Leukocyte Esterase NEGATIVE Urine WBC (Auto) 1 Urine RBC (Auto) 1 U Hyaline Cast (Auto) 3 Urine Mucus (Auto) RARE Urine Ascorbic Acid NEGATIVE 04/03/19 14:29 WBC RBC Hgb Hct MCV MCH MCHC RDW Plt Count Seg Neutrophils % Lymphocytes % Monocytes % Eosinophils % Basophils % Absolute Neutrophils Absolute Lymphocytes Absolute Monocytes Absolute Eosinophils Absolute Basophils Sodium Potassium Chloride Carbon Dioxide Anion Gap BUN Creatinine Est GFR ( Amer) Est GFR (Non-Af Amer) Glucose POC Glucose 178 H Calcium Magnesium Total Bilirubin Direct Bilirubin Neonat Total Bilirubin Neonat Direct Bilirubin Neonat Indirect Bili AST ALT Alkaline Phosphatase Creatine Kinase CK-MB (CK-2) Troponin I Total Protein Albumin TSH Free T4 Urine Color Urine Appearance Urine pH Ur Specific [place] Urine Protein Urine Glucose (UA) Urine Ketones Urine Blood Urine Nitrite Urine Bilirubin Urine Urobilinogen Ur Leukocyte Esterase Urine WBC (Auto) Urine RBC (Auto) U Hyaline Cast (Auto) Urine Mucus (Auto) Urine Ascorbic Acid - Diagnostic Test Radiology reviewed: Image reviewed, Reports reviewed Radiology results interpreted by me: 04/03/19 14:58 Chest X-Ray 04/03/19 12:15 IMPRESSION: NO ACUTE FINDINGS. - EKG Interpretation by In EKG shows normal: Sinus rhythm Rate: Normal - 75 bpm, no stemi, unchanged from prior, reviewed by dr zimmer When compared to previous EKG there are: No significant change Discharge - Discharge Clinical Impression: Near syncope, Hypoglycemic reaction to insulin, Chronic anemia Chronic renal disease Qualifiers: Chronic kidney disease stage: unspecified stage Qualified Code(s): N18.9 - Chronic kidney disease, unspecified Condition: Good Disposition: HOME, SELF-CARE Instructions: Hypoglycemia ([facility]), Near Syncopal Episode ([facility]) Additional Instructions: Follow-up with PCP 1 to 2 days. Return for any worsening symptoms. Eat and drink regular intervals. Keep a close check on your blood sugars. Follow-up closely with your PCP for a recheck of your lab work. use your insulin as prescribed. Referrals: XENIA STYLES MD [Primary Care Provider] - Follow up as needed
--- NOTE | 2019-04-03 13:05 | RADIOLOGY REPORT (SQ) ---
EXAM DESCRIPTION: CHEST SINGLE VIEW COMPLETED DATE/TIME: 04/03/2019 12:43 pm REASON FOR STUDY: dizzy COMPARISON: 08/26/2018 TECHNIQUE: Single frontal radiographic view of the chest acquired. NUMBER OF VIEWS: One view. LIMITATIONS: None. FINDINGS: LUNGS AND PLEURA: No pneumothorax. Similar basilar scarring. No acute consolidation or p leural effusion. MEDIASTINUM AND HILAR STRUCTURES: Stable. HEART AND VASCULAR STRUCTURES: Stable. BONES: No acute findings. HARDWARE: CABG. OTHER: No other significant finding. IMPRESSION: NO ACUTE FINDINGS. TECHNICAL DOCUMENTATION: JOB ID: [id number] [id number] [employer]- All Rights Reserved Reading location - IP/workstation name: [employer]
[2019-04-03 13:09] LABS: FREE T4 (FREE THYROXINE) 1.25 ng/dL (0.78-2.19)
[2019-04-03 13:24] LABS: THYROID STIMULATING HORMONE 1.54 uIU/mL (0.47-4.68)
[2019-04-03 14:30] LABS: APPEARANCE,URINE CLEAR; BILIRUBIN,URINE NEGATIVE (NEGATIVE); COLOR,URINE YELLOW; GLUCOSE, URINE 50 mg/dL (NEGATIVE); KETONES,URINE NEGATIVE (NEGATIVE); LEUKOCYTE ESTERASE,URINE NEGATIVE (NEGATIVE); NITRITE,URINE NEGATIVE (NEGATIVE); PROTEIN,URINE NEGATIVE (NEGATIVE); URINE SPECIFIC GRAVITY 1.016; UROBILINOGEN,URINE NEGATIVE mg/dL (<2.0)
[2019-04-03 15:20] VITALS: BP 114/62
--- NOTE | 2019-04-04 18:41 | EKG REPORT ---
SEVERITY:- ABNORMAL ECG - SINUS RHYTHM CONSIDER ANTEROSEPTAL INFARCT ABNORMAL T, CONSIDER ISCHEMIA, LATERAL LEADS : Confirmed by: Yobany Correa MD 04-Apr-2019 18:40:51
== END 2019-04-03 15:20 | disposition home or self-care (01) ==
LOC: ER 10:24
DX: E11.649 Type 2 diabetes mellitus with hypoglycemia without coma (principal); T38.3X5A Adverse effect of insulin and oral hypoglycemic [antidiabetic] drugs, initial encounter; I12.9 Hypertensive chronic kidney disease with stage 1 through stage 4 chronic kidney disease, or unspecified chronic kidney disease; E11.22 Type 2 diabetes mellitus with diabetic chronic kidney disease; N18.9 Chronic kidney disease, unspecified; D63.1 Anemia in chronic kidney disease; I95.1 Orthostatic hypotension; E66.9 Obesity, unspecified; I25.2 Old myocardial infarction; Z95.1 Presence of aortocoronary bypass graft
CPT/HCPCS: 36415; 71045; 80053; 81001; 82550; 82553; 82962; 83735; 84439; 84443; 84484; 85025; 93005; 93010; 99284

== ENCOUNTER 2020-01-18 12:38 | Emergency (ER) | payer MEDICARE, BC ==
--- NOTE | 2020-01-18 12:52 | ER Document Report ---
ED Medical Screen (RME) - General Chief Complaint: Leg Pain Stated Complaint: LEG PAIN Time Seen by Provider: 01/18/20 12:43 Primary Care Provider: XENIA STYLES MD [Primary Care Provider] - Follow up as needed TRAVEL OUTSIDE OF THE [place] IN LAST 30 DAYS: No - HPI Notes: 01/18/20 12:48 79-year-old male who is in remission for prostate cancer presents to the emergency room for progressive weakness, severe back pain, difficulty voiding with extremity weakness for the last month that is become progressively worse. Patient was seen by Dr. Sy this morning, who called over and recommended that the patient needs a lumbar MRI for concern of metastasis of his prostate cancer. Patient had difficulty voiding this morning. Patient has been seen by chiropractor 3 times for back pain, is taking pain medication and is soon is the pain medication wears off he is in severe pain. Patient typically does not ambulate around in a wheelchair but he is in a wheelchair today due to severe pain I have greeted and performed a rapid initial assessment of this patient. A comprehensive ED assessment and evaluation of the patient, analysis of test results and completion of the medical decision making process will be conducted by additional ED providers. PHYSICAL EXAMINATION: GENERAL: Chronically ill-appearing well-nourished and in no acute distress. CV: s1, s2 regular LUNGS: No respiratory distress Musculoskeletal: Normal range of motion NEUROLOGICAL: Normal speech. Able to wiggle toes bilaterally SKIN: Warm, Dry, normal turgor, no rashes or lesions noted. - Related Data Allergies/Adverse Reactions: prednisone Adverse Reaction (Verified 08/26/18 13:36) Past Medical History - Past Medical History Cardiac Medical History: Reports: Hx Heart Attack - [place] x13, Hx Hypertension Denies: Hx Coronary Artery Disease Pulmonary Medical History: Reports: Hx Pneumonia - hx of Denies: Hx Asthma, Hx Bronchitis, Hx COPD Neurological Medical History: Denies: Hx Cerebrovascular Accident, Hx Seizures Endocrine Medical History: Reports: Hx Diabetes Mellitus Type 2 Renal/ Medical History: Denies: Hx Peritoneal Dialysis Malignancy Medical History: Reports Hx Prostate Cancer Musculoskeltal Medical History: Reports Hx Arthritis - hands Past Surgical History: Reports: Hx Cardiac Surgery - triple bypass, Hx Coronary Artery Bypass Graft, Other - Prostate cancer with radiation implants. Denies: Hx Pacemaker - Immunizations Immunizations up to date: Yes Hx Diphtheria, Pertussis, Tetanus Vaccination: Yes - unsure of date Physical Exam - Vital signs Vitals: Temp Pulse Resp BP Pulse Ox 97.9 F 79 16 112/59 L 96 01/18/20 12:42 01/18/20 12:42 01/18/20 12:42 01/18/20 12:42 01/18/20 12:42 Course - Vital Signs Vital signs: Temp Pulse Resp BP Pulse Ox 97.9 F 79 16 112/59 L 96 01/18/20 12:42 01/18/20 12:42 01/18/20 12:42 01/18/20 12:42 01/18/20 12:42 Doctor's Discharge - Discharge Referrals: XENIA STYLES MD [Primary Care Provider] - Follow up as needed
[2020-01-18] MEDS ORDERED: NORMAL SALINE 500 ML IV ONE (13:22)
--- NOTE | 2020-01-18 13:29 | ER Document Report ---
ED Neck/Back Problem - General Chief Complaint: Weakness Stated Complaint: LEG PAIN Time Seen by Provider: 01/18/20 12:43 Primary Care Provider: XENIA STYLES MD [Primary Care Provider] - Follow up as needed Mode of Arrival: Wheelchair Information source: Patient Notes: Old male presented to ED for complaint of increased weakness and pain from his sciatica. He is a prostate cancer survivor who is in remission. He has had progressive weakness and back pain with difficulty voiding over the last 20 days to the last month. He states it has been coming progressively worse. He states he was seen by Dr. Sy this morning who stated that he would like to have a lumbar MRI done today for concerning of metastases of his prostate cancer. Patient is alert oriented respirations regular nonlabored. He states he did void this morning but with some difficulty. He states the pain has become progressively worse. He states he is able to walk but it is with a lot of pain. He states he is taking his steroids and his muscle relaxers as instructed. He states he normally walks with a walker but is becoming more more painful so sometimes he has to go in a wheelchair. He is alert oriented respirations regular nonlabored. He does live by himself. He states he does not smoke drink or use any illicit drugs. He is retired. 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 He did have prostate cancer surgery with radiation implants. TRAVEL OUTSIDE OF THE [place] IN LAST 30 DAYS: No - HPI Patient complains to provider of: Lower back - Radiating down his left leg Onset: Other - Over the last month that is steadily increased Onset: Chronic Timing: Still present, Worse Quality of pain: Sharp Severity: Moderate Pain Level: 4 Context: Turning Recent injury: No Associated symptoms: Like prior neck/back pain, Radiation to leg, Lower back pain. denies: Motor loss, Numbness/tingling, Sensory loss, Sweaty, Unable to urinate - Have some difficulty urinating but he has a history of prostate cancer Exacerbated by: Movement of trunk, Sitting position Relieved by: Nothing Similar symptoms previously: Yes Recently seen / treated by doctor: Yes - Related Data Allergies/Adverse Reactions: prednisone Adverse Reaction (Verified 08/26/18 13:36) Past Medical History - General Information source: Patient - Social History Smoking Status: Never Smoker Frequency of alcohol use: None Drug Abuse: None Lives with: Alone Family History: Reviewed & Not Pertinent Patient has homicidal ideation: No - Past Medical History Cardiac Medical History: Reports: Hx Coronary Artery Disease, Hx Heart Attack - [place] x13, Hx Hypercholesterolemia, Hx Hypertension Pulmonary Medical History: Reports: Hx Pneumonia - hx of EENT Medical History: Reports: None Neurological Medical History: Reports: None Endocrine Medical History: Reports: Hx Diabetes Mellitus Type 2 Renal/ Medical History: Reports: None Malignancy Medical History: Reports Hx Prostate Cancer GI Medical History: Reports: None Musculoskeletal Medical History: Reports Hx Arthritis - hands, Reports Hx Musculoskeletal Trauma - Multiple toes Skin Medical History: Reports None Psychiatric Medical History: Reports: None Traumatic Medical History: Reports: None Infectious Medical History: Reports: None Past Surgical History: Reports: Hx Cardiac Surgery - triple bypass, Hx Coronary Artery Bypass Graft, Other - Prostate cancer with radiation implants - Immunizations Immunizations up to date: Yes Hx Diphtheria, Pertussis, Tetanus Vaccination: Yes - unsure of date Review of Systems - Review of Systems Constitutional: No symptoms reported EENT: No symptoms reported Cardiovascular: No symptoms reported Respiratory: No symptoms reported Gastrointestinal: No symptoms reported Genitourinary: No symptoms reported Male Genitourinary: No symptoms reported Musculoskeletal: Back pain - Radiated down left leg has history of sciatica and prostate cancer oncologist concern for metastasis, Muscle pain, Muscle stiffness Skin: No symptoms reported Hematologic/Lymphatic: No symptoms reported Neurological/Psychological: No symptoms reported -: Yes All other systems reviewed and negative Physical Exam - Vital signs Vitals: Temp Pulse Resp BP Pulse Ox 97.9 F 79 16 112/59 L 96 01/18/20 12:42 01/18/20 12:42 01/18/20 12:42 01/18/20 12:42 01/18/20 12:42 Interpretation: Normal - General General appearance: Appears well, Alert - HEENT Head: Normocephalic, Atraumatic Eyes: Normal Pupils: PERRL - Respiratory Respiratory status: No respiratory distress Chest status: Nontender Breath sounds: Normal Chest palpation: Normal - Cardiovascular Rhythm: Regular Heart sounds: Normal auscultation Murmur: No - Abdominal Inspection: Normal Distension: No distension Bowel sounds: Normal Tenderness: Nontender Organomegaly: No organomegaly - Back Back: Normal, Tender, Vertebra tenderness. No: Deformity/step-off, CVA tenderness, Scars, Scoliosis, Wounds Notes: Patient has a history of sciatica over the last month. He states it is been getting worse and his doctor has sent him here for MRI to rule out metastases of his prostate cancer. - Extremities General upper extremity: Normal inspection, Nontender, Normal color, Normal ROM, Normal temperature General lower extremity: Normal inspection, Nontender, Normal color, Normal ROM, Normal temperature, Normal weight bearing. No: Heladio's sign - Neurological Neuro grossly intact: Yes Cognition: Normal Orientation: AAOx4 Antonia Coma Scale Eye Opening: Spontaneous [place] Coma Scale Verbal: Oriented Antonia Coma Scale Motor: Obeys Commands Antonia Coma Scale Total: 15 Speech: Normal Motor strength normal: LUE, RUE, LLE, RLE Sensory: Normal - Psychological Associated symptoms: Normal affect, Normal mood - Skin Skin Temperature: Warm Skin Moisture: Dry Skin Color: Normal Course - Re-evaluation Re-evalutation: 01/18/20 20:37 MRI results discussed with patient written report as well as CD of MRI given to patient to follow-up with his primary and his oncologist. Patient verbalized understanding and agreement with treatment plan patient was discharged home. He states he would follow-up with his primary and his oncology tomorrow. Discussed the lab results with him and gave him a written report of those as well. - Vital Signs Vital signs: Temp Pulse Resp BP Pulse Ox 98.2 F 79 15 120/67 99 01/18/20 18:39 01/18/20 12:42 01/18/20 17:59 01/18/20 18:00 01/18/20 18:00 - Laboratory Result Diagrams: 01/18/20 14:00 01/18/20 14:00 Laboratory results interpreted by me: 01/18/20 01/18/20 01/18/20 14:00 14:00 17:28 WBC 3.8 L RBC 4.33 L Hgb 13.3 L Hct 37.7 L [place] % (Auto) 13.3 H Sodium 132.8 L Potassium 5.5 H Chloride 96 L BUN 64 H Creatinine 1.65 H Est GFR ( Amer) 49 L Est GFR (MDRD) Non-Af 40 L Glucose 192 H Urine Protein 30 H Urine Ketones TRACE H Urine Blood SMALL H - Diagnostic Test Radiology reviewed: Image reviewed, Reports reviewed Discharge - Discharge Clinical Impression: Bulging lumbar disc Chronic low back pain with left-sided sciatica Qualifiers: Back pain laterality: bilateral Qualified Code(s): M54.42 - Lumbago with sciatica, left side; G89.29 - Other chronic pain Chronic renal disease Qualifiers: Chronic kidney disease stage: unspecified stage Qualified Code(s): N18.9 - Chronic kidney disease, unspecified Condition: Stable Disposition: HOME, SELF-CARE Additional Instructions: LOW BACK PAIN: Three out of every four people will have an episode of disabling back pain during their lifetime. Most commonly the pain is due to straining of the muscles and ligaments in the low back. Usual treatment includes: (1) Rest on a firm surface. Avoid lying on your stomach. (2) Ice pack the painful area. After a few days, gentle heat may be used intermittently to relax the area, or ice packs can be continued. (3) Medication may be needed -- muscle relaxers and antiinflammatory medicines are commonly used. (4) As the back improves, exercises are prescribed to strengthen the back and abdominal muscles. Your doctor will advise you on the proper care for your back at each stage in your recovery. You may be better in a few days -- or healing may take several weeks. If new symptoms of a "herniated disc" (radiation of pain, numbness, or tingling down the back of the leg or weakness in the leg) occur, you should be re-examined. Further testing may be necessary. Sciatica Your symptoms suggest "sciatica." The pain of sciatica typically radiates down the leg. Numbness in the foot or calf may also occur. Sciatica is caused by irritation of the sciatic nerve or its branches. The irritation can be due to a herniated disk in the spine, swelling and inflammation in the muscles surrounding the sciatic nerve, or direct injury of the nerve itself. Most cases of sciatica will resolve with medical treatment. Bed rest is usually recommended initially. Surgery is only necessary when the condition will not improve with rest and antiinflammatory medication. Muscle relaxers are often given if muscle soreness is present. A CAT scan of the back may be performed if a herniated disk is suspected. Re-examination is necessary if you develop increasing numbness, localized weakness in the foot or ankle, or if the pain does not respond to rest. PAIN MEDICATION INJECTION: You have received an injection of a pain medication. You should experience significant pain relief within 45 minutes. If this injection was a narcotic -- it will impair your judgement, slow your reaction time and make you sleepy (as well as relieve your pain). Narcotics also can cause nausea. You should not drive, work with machinery, or perform any task requiring mental alertness until all effects of the medication are gone -- six to eight hours. Do not take any alcohol, or sedatives, and do not take any other medication without checking with your physician. ICE PACKS: Apply ice packs frequently against the painful area. Many different schedules are recommended, such as "20 minutes on, 20 minutes off" or "one hour ice, two hours rest." If you need to work, you may need to go longer between ice treatments. You should plan to have the area ice packed AT LEAST one fourth of the time. The ice should be applied over the wrap, tape, or splint, or over a layer of cloth -- not directly against the skin. Some ice bags have a built-in cloth and can be put directly on the skin. WARM PACKS: After approximately two days, apply gentle heat (such as a heating pad or hot water bottle) for about 20 to 30 minutes about every two hours -- at least four times daily. Warmth and elevation will help you make a more rapid recovery, and will ease the pain considerably. Do not use HOT heat, and never apply heat for longer than 30 minutes. The continuous heat can invisibly damage skin and muscles -- even when no burn is seen on the surface. Damaged muscles can make you MORE sore. FOLLOW-UP CARE: If you have been referred to a physician for follow-up care, call the physicians office for an appointment as you were instructed or within the next two days. If you experience worsening or a significant change in your symptoms, notify the physician immediately or return to the Emergency Department at any time for re-evaluation. Forms: Return to Work Referrals: XENIA STYLES MD [Primary Care Provider] - Follow up as needed
[2020-01-18 14:07] LABS: ABSOLUTE EOSINOPHILS # (AUTO) 0.1 10^3/uL (0.0-0.6); ABSOLUTE LYMPHOCYTES (AUTO) 1.3 10^3/uL (0.5-4.7); ABSOLUTE MONOCYTES (AUTO) 0.5 10^3/uL (0.1-1.4); ABSOLUTE NEUT (AUTO) 1.9 10^3/uL (1.7-8.2); BASOPHILS % (AUTO) 0.5 % (0-2); EOSINOPHILS % (AUTO) 1.5 % (0-6); HEMATOCRIT 37.7 % (37.9-51.0); HEMOGLOBIN 13.3 g/dL (13.5-17.0); LYMPHOCYTES % (AUTO) 33.9 % (13-45); MEAN CORPUSCULAR HEMOGLOBIN 30.6 pg (27.0-33.4); MEAN CORPUSCULAR HGB CONC 35.2 g/dL (32.0-36.0); MEAN CORPUSCULAR VOLUME 87 fl (80-97); MONOCYTES % (AUTO) 13.3 % (3-13); PLATELET COUNT 211 10^3/uL (150-450); RED BLOOD COUNT 4.33 10^6/uL (4.35-5.55); RED CELL DISTRIBUTION WIDTH 13.8 % (11.5-14.0); SEGMENTED NEUTROPHILS % (AUTO) 50.8 % (42-78); TOTAL CELLS COUNTED % (AUTO) 100 %; WHITE BLOOD COUNT 3.8 10^3/uL (4.0-10.5)
[2020-01-18 14:24] LABS: ALBUMIN 4.4 g/dL (3.5-5.0); ALKALINE PHOSPHATASE 71 U/L (38-126); ANION GAP 10 (5-19); ASPARTATE AMINO TRANSFERASE 37 U/L (17-59); BILIRUBIN,DIRECT 0.2 mg/dL (0.0-0.4); BLOOD UREA NITROGEN 64 mg/dL (7-20); CALCIUM 9.5 mg/dL (8.4-10.2); CARBON DIOXIDE 27 mmol/L (22-30); CHLORIDE 96 mmol/L (98-107); GLUCOSE 192 mg/dL (75-110); POTASSIUM 5.5 mmol/L (3.6-5.0); TOTAL PROTEIN 7.8 g/dL (6.3-8.2)
[2020-01-18] MEDS ORDERED: LORAZEPAM INJ 2 MG/1 ML VIAL IV ONE (14:43)
[2020-01-18] MEDS ORDERED: MORPHINE SULFATE 10 MG/ML INJ IV ONE (15:38)
--- NOTE | 2020-01-18 16:58 | RADIOLOGY REPORT (SQ) ---
EXAM DESCRIPTION: MRI LUMBAR SPINE COMBO IMAGES COMPLETED DATE/TIME: 01/18/2020 4:30 pm REASON FOR STUDY: weakness, diff voiding, hx of prostate ca COMPARISON: None. TECHNIQUE: Sagittal and Axial imaging includes T1, T1 post gadolinium, T2, STIR and gradient echo se quences. Coronal T2/HASTE imaging. CONTRAST TYPE AND DOSE: 15 mL Dotarem. RENAL FUNCTION: Not indicated. ACR Type II contrast agent associated with few, if any, unconfounded cases of NSF LIMITATIONS: None. FINDINGS: VISUALIZED UPPER ABDOMEN: Limited evaluation. No acute or suspicious findings suggested. SEGMENTATION: No transitional anatomy. The lowest well-developed disc space is labeled L5-S1. ALIGNMENT: Anatomic. VERTEBRAE: Intact. No fractures. BONE MARROW: Normal. No marrow replacement or reactive changes. DISC SIGNAL: Loss of normal signal throughout the lumbar spine. Disc space narrowing at L3-L4 and L5 -S1. POSTERIOR ELEMENTS: Generally intact. No pars defect evident. HARDWARE: None in the spine. CORD AND CONUS: Normal in size and signal intensity. Conus at the appropriate level. SOFT TISSUES: No aortic aneurysm seen. No bulky retroperitoneal adenopathy or mass. No paraspinal mas s or fluid. L1-L2: No significant spinal stenosis or exit foraminal stenosis. L2-L3: No significant spinal stenosis or exit foraminal stenosis. L3-L4: There is annular disc bulging at L3-L4. There is asymmetric soft tissue attenuation in the le ft neural foramina. On post-contrast axial T1 weighted images this appears to represent extruded dis c fragment. On series 11, image 16 there appears to be disc with peripheral enhancement on the left. No nerve root appears to be compressed by the disc. Small nerve root sheath tumor cannot be exclud ed but is thought to be less likely. L4-L5: Facet arthropathy. Ligamentum flavum hypertrophy with moderate central stenosis. Mild asymme tric narrowing of the left neural foramina. L5-S1: Disc space narrowing with annular disc bulging there is a focal right lateral protrusion resul ting in asymmetric narrowing of the right neural foramina. LOWER THORACIC: Incompletely imaged. No stenosis seen. SACRUM: Visualized upper sacrum intact. ENHANCEMENT: No abnormal enhancement. OTHER: No other significant findings. IMPRESSION: 1. Asymmetric narrowing of the left neural foramina at L3-L4. There appears to be mary pheral enhancement in this probably represents extruded disc fragment. Small nerve root sheath tumor cannot entirely be excluded but is thought to be less likely. 2. Moderate central stenosis at L4-L5 secondary to annular disc bulging and facet arthropathy. Ther e is asymmetric narrowing of the left neural foramina. 3. Asymmetric narrowing of the right neural foramina at L5-S1 secondary to annular disc bulging and focal right lateral protrusion. TECHNICAL DOCUMENTATION: JOB ID: [id number] 2010 [employer]- All Rights Reserved Reading location - IP/workstation name: [email or web address]
[2020-01-18 17:43] LABS: APPEARANCE,URINE CLEAR; BILIRUBIN,URINE NEGATIVE (NEGATIVE); COLOR,URINE YELLOW; GLUCOSE, URINE NEGATIVE (NEGATIVE); KETONES,URINE TRACE mg/dL (NEGATIVE); LEUKOCYTE ESTERASE,URINE NEGATIVE (NEGATIVE); NITRITE,URINE NEGATIVE (NEGATIVE); PROTEIN,URINE 30 mg/dL (NEGATIVE); URINE SPECIFIC GRAVITY 1.019; UROBILINOGEN,URINE NEGATIVE mg/dL (<2.0)
[2020-01-18 18:33] VITALS: BP 120/67
== END 2020-01-18 18:39 | disposition home or self-care (01) ==
LOC: ER 12:38
DX: M51.16 Intervertebral disc disorders with radiculopathy, lumbar region (principal); I12.9 Hypertensive chronic kidney disease with stage 1 through stage 4 chronic kidney disease, or unspecified chronic kidney disease; E11.22 Type 2 diabetes mellitus with diabetic chronic kidney disease; N18.9 Chronic kidney disease, unspecified; R53.1 Weakness; I25.10 Atherosclerotic heart disease of native coronary artery without angina pectoris; I25.2 Old myocardial infarction; Z85.46 Personal history of malignant neoplasm of prostate; Z95.1 Presence of aortocoronary bypass graft
CPT/HCPCS: 99284; 96361; 96374; 96375; 36415; 85025; 80053; 81001; 72158; A9576; J2270; J2060; J7040